=== PATIENT | female | born 1955 | race Caucasian/White ===

== ENCOUNTER 2018-01-30 10:06 | Day surgery (SDC) | payer MEDICARE ==
[~2018-01-30 10:06] MED LIST: ALBUTEROL NEB (CONC) 2.5 MG/0.5 ML INHALATION ONE; ATROPINE SULFATE 0.4 MG/ML 1 ML VIAL IM ONE; DEXAMETHASONE SOD PHOSPHATE 10 MG/ML 1 ML VIAL IV ONE; HYDROmorphone 0.5 MG/0.5 ML SYRINGE IVP PRN; LACTATED RINGERS 1,000 ML IV ONE; LACTATED RINGERS 1,000 ML IV SCH; LIDOCAINE 2% (PF) 20 MG/ML 10 ML AMP INHALATION NR; LIDOCAINE VISCOUS 2% 15 ML CUP MUCOUS MEM ONE; ONDANSETRON 4 MG/2 ML VIAL IVP ONE; SCOPOLAMINE 1.5MG/72HR PATCH TRANSDERM ONE
[2018-01-30 10:36] VITALS: RESP 16; TEMP 97.7
[2018-01-30] MEDS ORDERED: MIDAZOLAM 2 MG/2 ML VIAL ONE (11:34)
[2018-01-30] MEDS ORDERED: PROPOFOL 10 MG/ML 20 ML VIAL IV ONE (11:34)
[2018-01-30] MEDS ORDERED: LIDOCAINE 1% INJ 10MG/ML (20 ML MDV) ONE (11:34)
[2018-01-30] MEDS ORDERED: fentaNYL (PF) 50 MCG/ML 2 ML AMP ONE (11:34)
--- NOTE | 2018-01-30 12:52 | FL ---
EXAMINATION TYPE: FL bronchoscopy DATE OF EXAM: 01/30/2018 COMPARISON: NONE HISTORY: Fluoroscopy TECHNIQUE: Fluoroscopy. FINDINGS: Fluoroscopic guidance was provided during procedure of 1 minute and 33 seconds. IMPRESSION: As Above.
--- NOTE | 2018-01-30 13:12 | XR ---
EXAMINATION TYPE: XR chest 1V portable DATE OF EXAM: 01/30/2018 COMPARISON: NONE HISTORY: Status post lung biopsy. Known right lung mass. TECHNIQUE: Single frontal view of the chest is obtained. FINDINGS: There is a right lower lung opacity likely representing both the known right sided pulmona ry neoplasm and postbiopsy hemorrhage. No postprocedural pneumothorax is seen. Cardia mediastinal maria guadalupe houette is within normal limits. Mild multilevel degenerative changes of the thoracic spine are noted . Left lung remains clear. IMPRESSION: Right lower lung opacity likely representing the patient's known pulmonary neoplasm and postbiopsy hemorrhage. No postprocedural pneumothorax.
[2018-01-30 13:28] VITALS: BP 104/73; PULSE 60
[2018-01-30 18:21] LABS: Appearance,BF Blood Tinged; Mononuclear WBC,Body Fluid 87 %; Nucleated Cells, Body Fluid 200 /uL; Polynuclear WBC,Body Fluid 13 %; RBC, Body Fluid 11500 /uL; Total Cells Counted,Body Fluid 100
[2018-01-30] MEDS ORDERED: LIDOCAINE HCL/PF 20 MG/ML ML INHALATION ONE (19:45)
--- NOTE | 2018-01-30 22:15 | PCN ---
PROCEDURE NOTE PROCEDURE: Bronchoscopy, airway examination, therapeutic lavage, bronchoalveolar lavage, brushing of right lower lobe and transbronchial biopsy right lower lobe. PREOPERATIVE DIAGNOSIS: Rule out bronchogenic carcinoma. POSTOPERATIVE DIAGNOSIS: Rule out bronchogenic carcinoma. DESCRIPTION: There was informed consent. There was universal timeout. The procedure took place in room #1. The operators were Dr. Collins and Dr. Núñez. CHESTNUT TANNER provided unconscious sedation and general anesthesia. After the patient was adequately sedated and being fully monitored, the bronchoscope was inserted through the right nostril. It passed through the right nasopharynx into the oropharynx. The hypopharynx was identified and topicalized. The hypopharyngeal structures including the anterior commissure, true cords, false cords, arytenoids, piriform sinuses, right and left vallecula and epiglottis all appeared normal. After topicalization, bronchoscope was pushed through the glottic opening into the trachea. Trachea appeared normal. Trachea ana was sharp. We did a thorough inspection of the right upper lobe and its 3 segments, right middle lobe and its 2 segments, right lower lobe and its 5 segments, left upper lobe proper and its 2 segments, the lingula and its 2 segments, the left lower lobe and its 4 segments and there was no endobronchial disease. I expected to see some endobronchial disease based on the CT scan. Nonetheless, the bronchoscope was positioned in the right lower lobe. First, under fluoroscopic guidance, we did brushes to the right lower lobe. Next, we did multiple transbronchial biopsies under fluoroscopic guidance of the right lower lobe. Finally, we did washes in the right lower lobe. There was minimal bleeding. The patient tolerated the procedure well. There was no complications. There was no obvious pneumothorax on fluoro. A chest x-ray will be ordered. The bronchoscope was withdrawn. The patient will be recovered. MMODL / IJN: [id number] /
== END 2018-01-30 13:58 | disposition home or self-care (01) ==
LOC: ORWHC2ENDO 10:06
PROVIDERS: ATTEND Internal Medicine Critical Care Medicine
DX: J40 Bronchitis, not specified as acute or chronic (principal); I25.10 Atherosclerotic heart disease of native coronary artery without angina pectoris; I25.2 Old myocardial infarction; I10 Essential (primary) hypertension; E55.9 Vitamin D deficiency, unspecified; J18.9 Pneumonia, unspecified organism; Z87.891 Personal history of nicotine dependence; Z88.6 Allergy status to analgesic agent; Z88.8 Allergy status to other drugs, medicaments and biological substances; Z88.5 Allergy status to narcotic agent; Z79.891 Long term (current) use of opiate analgesic; Z79.899 Other long term (current) drug therapy
CPT/HCPCS: 94640; 87798 ×3; 87496; 87498; 87529 ×2; 88104; 88108; 88305; 89050; 87252; 87502; 87634; 87070; 87205; 87116; 87102; 87206; 71045; 31628; 31623; J2250; J0461; J2001 ×2; J3010; J2704; 31622; 31624; 31625

== ENCOUNTER → 2018-02-09 | Outpatient (CLI) | payer MEDICARE ==
--- NOTE | 2018-02-10 09:37 | PE ---
EXAMINATION TYPE: PET CT fusion skull to thigh DATE OF EXAM: 02/09/2018 COMPARISON: There are no prior CTs at this location. Chest x-ray 01/30/2018. Prior PET/CT: None HISTORY: Lung cancer TECHNIQUE: Following the intravenous administration of 12.03 mCi of F-18 FDG, whole body images are performed from the skull base to the midthigh. Images are reviewed on the computer in the coronal, a xial, and sagittal planes. Reconstructed rotating images are created on independent workstation and reviewed on the computer. A localization and attenuation correction CT is performed in conjunction with the PET scan. DLP: 451.84 mGycm SCAN: Initial Blood glucose: 103 mg/dL Average Mediastinum SUV: 1.84 Average Liver SUV: 3.01 FINDINGS: NECK: No abnormal uptake THORAX: The lung mass in the right middle lobe in the infrahilar region has marked increased SUV valu e of 16 compatible with neoplasm. Some post obstructive atelectasis is likely present extending into the more peripheral right middle lobe without marked uptake. There is a prominent lymph node in the pretracheal space above the level of the ana has mild uptak e. Maximum SUV value appears to be 2.8. Early metastasis should be considered. There is an enlarged l ymph node in the subcarinal region with increased uptake measuring 3.5 SUV. This is suspicious for me tastatic disease. ABDOMEN: No abnormal uptake. Adrenal glands are without abnormal uptake. Liver appears unremarkable. There is some patchy distribution of the radiotracer through the liver. Subtle metastasis would be ob scured. PELVIS: No abnormal uptake OSSEOUS STRUCTURES: No abnormal uptake LOCALIZATION CT: The enlarged pretracheal lymph node measuring 1.3 cm a subcarinal lymph node measuri ng 1.9 cm corresponding to the area of uptake on the PET scan. The right infrahilar lung mass is evid ent although less distinct than on the PET/CT. Note is made of coronary artery calcification. The asc ending thoracic aorta at the level of the main pulmonary artery is 3.3 cm. The main pulmonary artery the bifurcation is 2.3 cm. There may be a calcification in the left adrenal gland. This may be relate d to nearby adjacent splenic artery calcification. Right adrenal gland appears unremarkable. Noncontr ast imaging liver appears unremarkable. There is fusiform prominence of the abdominal aorta with an A P dimension of 3.4 cm. The proximal iliac vessels are dilated measuring 1.8 cm on the left common jesus ac 2.3 cm on the right common iliac. COMPARISON: Chest x-ray findings correspond to PET/CT findings. IMPRESSION: 1. Marked increased uptake within the right infrahilar mass in the right middle lobe compatible with neoplasm. 2. Metastatic disease to the enlarged lymph nodes in the pretracheal and subcarinal regions suspected based on elevated SUV values within these lymph nodes. 3. More distant metastasis are not identified.
== END ==
LOC: RADPETMAIN 09:37
PROVIDERS: ATTEND Internal Medicine Critical Care Medicine
DX: R91.8 Other nonspecific abnormal finding of lung field (principal)
CPT/HCPCS: 78815; A9552

== ENCOUNTER 2018-02-19 09:57 | Day surgery (SDC) | payer MEDICARE ==
[2018-02-14 13:21] VITALS: BMI 30.2
[~2018-02-19 09:57] MED LIST changes: -DEXAMETHASONE SOD PHOSPHATE 10 MG/ML 1 ML VIAL IV ONE; -HYDROmorphone 0.5 MG/0.5 ML SYRINGE IVP PRN; -LACTATED RINGERS 1,000 ML IV ONE; -LIDOCAINE 2% (PF) 20 MG/ML 10 ML AMP INHALATION NR; +LIDOCAINE HCL/PF 20 MG/ML ML INHALATION ONE; +MORPHINE SULFATE 2 MG/ML SYRINGE IV PRN; -ONDANSETRON 4 MG/2 ML VIAL IVP ONE; -SCOPOLAMINE 1.5MG/72HR PATCH TRANSDERM ONE; +SODIUM CHLORIDE 0.9% 1,000 ML IV SCH
[2018-02-19] MEDS ORDERED: LACTATED RINGERS 1,000 ML IV ONE (10:14)
[2018-02-19] MEDS ORDERED: LIDOCAINE 1% 20 ML VIAL (10MG/ML) FOR IV START INTRADERMA ONE (10:14)
[2018-02-19] MEDS ORDERED: MIDAZOLAM 2 MG/2 ML VIAL ONE (11:34)
[2018-02-19] MEDS ORDERED: ROCURONIUM BROMIDE 10 MG/ML 10 ML VIAL IV ONE (11:34)
[2018-02-19] MEDS ORDERED: LIDOCAINE 1% INJ 10MG/ML (20 ML MDV) ONE (11:34)
[2018-02-19] MEDS ORDERED: NEOSTIGMINE 1 MG/ML 10 ML VIAL ONE (11:34)
[2018-02-19] MEDS ORDERED: GLYCOPYRROLATE 0.2 MG/ML 2 ML VIAL ONE (11:34)
[2018-02-19] MEDS ORDERED: fentaNYL (PF) 50 MCG/ML 2 ML AMP ONE (11:34)
[2018-02-19] MEDS ORDERED: SUCCINYLCHOLINE CHLORIDE 100 MG/5 ML SYR IV ONE (11:34)
[2018-02-19] MEDS ORDERED: PROPOFOL 10 MG/ML 20 ML VIAL IV ONE (11:34)
[2018-02-19 12:53] VITALS: TEMP 97
--- NOTE | 2018-02-19 13:22 | XR ---
EXAMINATION TYPE: XR chest 1V DATE OF EXAM: 02/19/2018 COMPARISON: Prior chest x-ray 01/30/2018 HISTORY: Status post bronchoscopy TECHNIQUE: Single frontal view of the chest is obtained. FINDINGS: Patient is rotated. Arm overlies the left upper chest. No evident pneumothorax or pleural effusion. Abnormal density in the right middle lobe persists. IMPRESSION: No evident complication status post bronchoscopy.
[2018-02-19 13:44] VITALS: RESP 20
[2018-02-19 14:14] VITALS: BP 109/72; PULSE 64
--- NOTE | 2018-02-19 15:18 | CT ---
EXAMINATION TYPE: CT Chest francine Castro Protocol DATE OF EXAM: 02/19/2018 COMPARISON: 02/09/[address] HISTORY: Bronchial navigation. CT DLP: 923 mGycm Automated exposure control for dose reduction was used. FINDINGS: The triangular density extending into the right middle lobe remains present. This extends from the ma in right lower lobe bronchus. This is persistent from the PET/CT localization. Mild coronary artery calcification is present. Vascular calcifications at the aorta. There is enlarge d pretracheal lymph node measuring 1.2 cm. Subcarinal lymph node is enlarged estimated at 1.5 cm. A 1 .0 cm right peribronchial lymph node may be present. Tiny hypodensities in the superior right lobe liver measuring 0.4 cm could be a small cyst. Other rebekah ologies are not excluded, cyst too small to classify as a simple cyst. There is some fusiform promine nce of the distal visualized portion of the abdominal aorta measuring 3.1 cm. IMPRESSION: 1. TRIANGULAR OPACITY OF THE RIGHT MIDDLE LOBE EXTENDING FROM THE RIGHT MIDDLE LOBE BRONCHUS. 2. ENLARGED MEDIASTINAL LYMPH NODES. 3. FUSIFORM PROMINENCE OF THE PROXIMAL ABDOMINAL AORTA.
--- NOTE | 2018-02-19 18:54 | PCN ---
PROCEDURE NOTE PROCEDURE: Navigational bronchoscopy. OPERATORS: 1. Dr. Collins. 2. Dr. Núñez. There was informed consent and universal timeout. The patient's procedure took place in the operating room. General anesthesia was supplied by Dr. Wiggins and the nurse petroleum terminal plant operator. After the patient was adequately sedated and anesthetized, the bronchoscope was inserted through the bronchoscope adapter connected to the endotracheal tube. The patient had a preoperative CT scan to localize the lesion in the right middle lobe. The mapping was done prior. Next, the area was sampled a number of different ways. Initially we did some needle aspiration biopsies. Subsequent to that, we did some core biopsies, some endobronchial biopsies, some brushes and washes in the right middle lobe. We had Pathology stand by in the room during the procedure. They were convinced that we did make a diagnosis of [id number] lung cancer. We supplied them with a number of different specimens for them to take back to the laboratory to do analysis on. The patient tolerated the procedure well. After the biopsies were done and the sampling was done, we ensured that there was adequate hemostasis and there was. Next, the bronchoscope was withdrawn. The patient will be recovered. There was no immediate complication. Additional recommendations and suggestions are forthcoming. MMODL / IJN: [id number] /
== END 2018-02-19 14:22 | disposition home or self-care (01) ==
LOC: ORWHC2ENDO 09:57
PROVIDERS: ATTEND Internal Medicine Critical Care Medicine
DX: C34.2 Malignant neoplasm of middle lobe, bronchus or lung (principal); I10 Essential (primary) hypertension; I25.2 Old myocardial infarction; Z87.891 Personal history of nicotine dependence; I25.10 Atherosclerotic heart disease of native coronary artery without angina pectoris; E78.5 Hyperlipidemia, unspecified; Z88.6 Allergy status to analgesic agent; Z79.1 Long term (current) use of non-steroidal anti-inflammatories (NSAID); Z79.82 Long term (current) use of aspirin; Z79.891 Long term (current) use of opiate analgesic; Z79.899 Other long term (current) drug therapy; Z88.5 Allergy status to narcotic agent; Z88.8 Allergy status to other drugs, medicaments and biological substances; G89.29 Other chronic pain; M54.5 Low back pain
CPT/HCPCS: 88104; 88108; 88305; 88173; 88342; 71045; 71250; 31625; 31623; 31627; J2250; J2710; J2001; J3010; J0330; J2704; 31624

== ENCOUNTER → 2018-03-11 | Outpatient (CLI) | payer MEDICARE ==
[2018-03-11 08:42] LABS: Blood Urea Nitrogen 19 mg/dL (7-17)
--- NOTE | 2018-03-11 10:41 | MR ---
EXAMINATION TYPE: MR brain wo/w con DATE OF EXAM: 03/11/2018 COMPARISON: NONE HISTORY: Newly diagnosed lung cancer, initial staging study. TECHNIQUE: Multiplanar, multisequence images of the brain and brainstem is performed without and with IV contras t, utilizing 7.5 mL intravenous Gadavist . FINDINGS: Diffusion weighted images demonstrate no evidence of a recent infarct or other diffusion ab normality. There is no extra-axial fluid collection or significant white matter signal abnormality. The ventricular system and cisternal spaces are normal in size and appearance. The brain volume is age appropriate. Midline structures demonstrate normal morphology. The craniocervical junction appears within normal limits. Dominant right vertebral artery is incidentally noted. Post contrast images demonstrate no a bnormal enhancement. The dural venous sinuses appear patent. The visualized sinuses are clear and the globes are intact. IMPRESSION: No enhancing intraparenchymal foci identified to suggest metastatic disease to the brain currently.
== END | disposition home or self-care (01) ==
LOC: RADMRIMAIN 07:07
PROVIDERS: ATTEND Radiology Radiation Oncology
DX: C34.31 Malignant neoplasm of lower lobe, right bronchus or lung (principal)
CPT/HCPCS: 82565; 84520; 70553; 36415; A9585

== ENCOUNTER 2018-07-10 11:19 | Emergency (ER) | payer MEDICARE ==
[2018-07-10] MEDS ORDERED: RX INFO: IV CONTRAST WAS GIVEN 1 EACH MISC MISCELLANE PRN (12:06)
--- NOTE | 2018-07-10 12:12 | ED ---
General Adult HPI - General Chief complaint: Extremity Injury, Lower Stated complaint: Poss blood clot Time Seen by Provider: 07/10/18 11:53 Source: patient Mode of arrival: wheelchair Limitations: no limitations - History of Present Illness Initial comments: Dictation was produced using [employer] dictation software. please excuse any gra mmatical, word or spelling errors. Chief Complaint: 63-year-old female sent in by nurse practitioner from oncologist office for right lower extremity symptoms. History of Present Illness: 63-year-old female she was told by the nurse practitioner to come to the emergency department for further evaluation. 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 She did think much of it and went on about her day. They she's been having worsening right lower extremity pain with exertion. Patient then went to go see her nurse practitioner at the oncologist office. At that time she felt like her leg was cool and discolored. She is evaluated by nurse practitioner who reports that she can barely feel a pulse pressure she was sent here to the emergency department for evaluation of acute arterial occlusion of the right lower extremity. Patient states that her symptoms are much improved. She reports that the discoloration right lower extremity is none. Denies chest pain or shortness of breath. The ROS documented in this emergency department record has been reviewed and confirmed by me. Those systems with pertinent positive or negative responses have been documented in the HPI. All other systems are other negative and/or noncontributory. PHYSICAL EXAM: General Impression: Alert and oriented x3, not in acute distress HEENT: Normocephalic atraumatic, extra-ocular movements intact, pupils equal and reactive to light bilaterally, mucous membranes moist. Cardiovascular: Heart regular rate and rhythm, S1&S2 audible, no murmurs, rubs or gallops Chest: Lungs clear to auscultation bilaterally, no rhonchi, no wheeze, no rales Abdomen: Bowel sounds present, abdomen soft, non-tender, non-distended, no organomegaly Musculoskeletal: Pulse of the PT and DP of the right lower extremity no peripheral edema Right lower extremity is equal in temperature compared to the left. Coloration is symmetrical diminished pulse in the right DP and PT pulse Motor: no focal deficits noted Neurological: CN II-XII grossly intact, no focal motor or sensory deficits noted Skin: Intact with no visualized rashes Psych: Normal affect and mood ED course: 63-year-old female presents with clinical presentation concerning for acute arterial occlusion. Physical examination at this time shows decreased pulse however other findings to suggest ischemic limb. Signs upon arrival are within acceptable limits. Laboratory evaluation obtained. CBC coag panel unremarkable. No LOC acidosis. Chest x-ray is nonacute. Lower extremity CT angios were performed. There is peripheral vascular disease on bilateral lower extremities. Given that her right leg was the leg of interest there is difficult to exclude acute thrombosis of the popliteal artery. Patient does have decreased pulse however upon repeat evaluation she does have normal temperatures, sensation of light touch and intact movement. At this point clinically her foot does not appear acutely ischemic. Discussed patient case with Dr. Sanchez who recommended discussing patient case with Dr. Mistry. Discussed patient case with Dr. Mistry. Patient insisted that she not go down by ambulance given increase hospital bills. She does however agree to go via private vehicle. Patient understands the risk of private vehicle transfer and they accept the risks. Patient clinically stable at this time. Dr. Mistry is expecting the patient. Discussed patient case with Dr. Huber at [facility] who was willing to accept the transfer. EKG interpretation: Ventricular rate 77, normal sinus rhythm,. 144, care is 100, QTC 466. No ND prolongation, no QTC prolongation, no ST or T-wave changes noted. Overall, this EKG is unremarkable - Related Data Home Medications Medication Instructions Recorded Confirmed Cyclobenzaprine [Flexeril] 10 mg PO TID PRN 01/28/18 07/10/18 HYDROcodone/APAP 7.5-325MG [Eight[place] 1 tab PO Q8H PRN 01/28/18 07/10/18 7.5-325] Ibuprofen [Motrin] 800 mg PO TID PRN 01/28/18 07/10/18 Nitroglycerin Sl Tabs [Nitrostat] 0.4 mg PO Q5M PRN 01/28/18 07/10/18 Pramipexole [Mirapex] 0.125 mg PO HS 01/28/18 07/10/18 Rosuvastatin [Crestor] 20 mg PO HS 01/28/18 07/10/18 Spironolactone [Aldactone] 25 mg PO QAM 01/28/18 07/10/18 Aspirin [Adult Low Dose Aspirin EC] 81 mg PO DAILY 05/22/18 07/10/18 Ondansetron HCl [Zofran] 4 mg PO Q6H PRN 05/22/18 07/10/18 Albuterol Sulfate [Albuterol 1 puff PO RT-Q4H PRN 07/10/18 07/10/18 Sulfate Hfa] Ibuprofen/Diphenhydramine Cit 2 tab PO HS PRN 07/10/18 07/10/18 [Motrin Pm Caplet] Loratadine [Claritin] 10 mg PO DAILY 07/10/18 07/10/18 Nystatin 100,000 Unit/ml Susp 5 ml PO QID PRN 07/10/18 07/10/18 [Mycostatin Oral Susp] Pantoprazole Sodium [Protonix] 40 mg PO BID 07/10/18 07/10/18 Allergies Allergy/AdvReac Type Severity Reaction Status Date / Time ketorolac [From Toradol] AdvReac Rash/Hives Verified 07/10/18 12:09 orphenadrine [From Norgesic] AdvReac Rash/Hives Verified 07/10/18 12:09 tolmetin [From Tolectin] AdvReac Rash/Hives Verified 07/10/18 12:09 Review of Systems ROS Statement: Those systems with pertinent positive or pertinent negative responses have been documented in the HPI. ROS Other: All systems not noted in ROS Statement are negative. Past Medical History Past Medical History: Cancer, Hyperlipidemia, Hypertension, Myocardial Infarction (AR), Osteoarthritis (OA) Additional Past Medical History / Comment(s): LOWER BACK PAIN. MASS RIGHT LUNG (SOB). RIGHT MIDDLE LOBE NSC LUNG CANCER. Last Myocardial Infarction Date:: 1995 History of Any Multi-Drug Resistant Organisms: None Reported Past Surgical History: Back Surgery, Breast Surgery, Heart Catheterization, Hysterectomy, Orthopedic Surgery Additional Past Surgical History / Comment(s): left kidney mass removed, RIGHT ROTATOR CUFF. THYROID. LEFT BREAST BX (NEG). Past Anesthesia/Blood Transfusion Reactions: No Reported Reaction Past Psychological History: No Psychological Hx Reported Smoking Status: Former smoker Past Alcohol Use History: None Reported Past Drug Use History: None Reported - Past Family History Mother Family Medical History: Cancer Additional Family Medical History / Comment(s): lung cancer. mesothelioma General Exam Limitations: no limitations Course Vital Signs 07/10/18 07/10/18 07/10/18 11:43 12:39 14:00 Temperature 97.1 F L Pulse Rate 88 75 77 Respiratory 16 18 18 Rate Blood Pressure 116/83 112/84 129/84 O2 Sat by Pulse 99 100 97 Oximetry 07/10/18 15:00 Temperature 98.0 F Pulse Rate 86 Respiratory 18 Rate Blood Pressure 129/85 O2 Sat by Pulse 99 Oximetry Medical Decision Making - Lab Data Result diagrams: 07/10/18 12:35 07/10/18 12:35 Lab Results 07/10/18 07/10/18 07/10/18 Range/Units 12:35 12:35 12:35 WBC 9.4 (3.8-10.6) k/uL RBC 4.24 (3.80-5.40) m/uL Hgb 11.9 (11.4-16.0) gm/dL Hct 36.2 (34.0-46.0) % MCV 85.3 (80.0-100.0) fL MCH 28.1 (25.0-35.0) pg MCHC 32.9 (31.0-37.0) g/dL RDW 15.5 (11.5-15.5) % Plt Count 251 (150-450) k/uL Neutrophils % 77 % Lymphocytes % 20 % Monocytes % 1 % Eosinophils % 1 % Basophils % 0 % Neutrophils # 7.2 (1.3-7.7) k/uL Lymphocytes # 1.9 (1.0-4.8) k/uL Monocytes # 0.1 (0-1.0) k/uL Eosinophils # 0.1 (0-0.7) k/uL Basophils # 0.0 (0-0.2) k/uL Sodium 134 L (137-145) mmol/L Potassium 4.8 (3.5-5.1) mmol/L Chloride 100 (98-107) mmol/L Carbon Dioxide 24 (22-30) mmol/L Anion Gap 10 mmol/L BUN 14 (7-17) mg/dL Creatinine 0.55 (0.52-1.04) mg/dL Est GFR (CKD-EPI)AfAm >90 (>60 ml/min/1.73 sqM) Est GFR (CKD-EPI)NonAf >90 (>60 ml/min/1.73 sqM) Glucose 99 (74-99) mg/dL Plasma Lactic Acid Mumtaz 1.0 (0.7-2.0) mmol/L Calcium 9.3 (8.4-10.2) mg/dL Magnesium 1.6 (1.6-2.3) mg/dL Disposition Clinical Impression: Acute occlusion of artery Disposition: OTHER INSTITUTION NOT DEFINED Condition: Critical Referrals: Pk Castano DO [Primary Care Provider] - 1-2 days - Out of Hospital Transfer - Req. Specs Out of Hospital Transfer - Requested Specifics: Other Emergency Center ([facility])
[2018-07-10 12:40] VITALS: RESP 18
[2018-07-10 13:06] LABS: Anion Gap 10 mmol/L; Blood Urea Nitrogen 14 mg/dL (7-17); Calcium 9.3 mg/dL (8.4-10.2); Carbon Dioxide 24 mmol/L (22-30); Chloride 100 mmol/L (98-107); Glucose 99 mg/dL (74-99); Magnesium 1.6 mg/dL (1.6-2.3); Potassium 4.8 mmol/L (3.5-5.1); Sodium 134 mmol/L (137-145)
[2018-07-10 13:13] LABS: Basophils % (A) 0 %; Eosinophils # (A) 0.1 k/uL (0-0.7); Eosinophils % (A) 1 %; HCT 36.2 % (34.0-46.0); HGB 11.9 gm/dL (11.4-16.0); Lymphocytes # (A) 1.9 k/uL (1.0-4.8); Lymphocytes % (A) 20 %; MCH 28.1 pg (25.0-35.0); MCHC 32.9 g/dL (31.0-37.0); MCV 85.3 fL (80.0-100.0); Mean Platelet Volume 6.8; Monocytes # (A) 0.1 k/uL (0-1.0); Monocytes % (A) 1 %; Neutrophils # (A) 7.2 k/uL (1.3-7.7); Neutrophils % (A) 77 %; Platelet Count 251 k/uL (150-450); RBC 4.24 m/uL (3.80-5.40); RDW 15.5 % (11.5-15.5); WBC 9.4 k/uL (3.8-10.6)
--- NOTE | 2018-07-10 13:54 | XR ---
EXAMINATION TYPE: XR chest 1V portable DATE OF EXAM: 07/10/2018 COMPARISON: 02/19/2018 INDICATION: Right lower extremity circulation probable TECHNIQUE: Single frontal view of the chest is obtained. FINDINGS: The heart size is normal. The pulmonary vasculature is normal. The lungs are clear. Note is made of a stent-like device in the right hilar region IMPRESSION: 1. No acute pulmonary process.
--- NOTE | 2018-07-10 14:19 | CT ---
CT angiogram right lower extremity HISTORY: Pain Helical acquisition from the distal aorta through the lower extremities following 100 cc [id number] I V. Three-dimensional reconstructions performed on an alternate workstation. No comparisons Infrarenal abdominal aorta is ectatic measuring 2.5 cm. There is luminal plaque. Inferior mesenteric artery, common iliac arteries, internal and external iliac arteries are patent. Common iliac arteries aneurysmal at 2.6 cm on the right hand 2.4 cm on the left. The common femoral arteries, deep and superficial femoral arteries are patent. On the right the distal superficial femoral artery is occluded. 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 Minimal reconstituted peroneal opacification distally on the right. Poor opacification of the left popliteal artery also show to be present showing more distally, no peripheral flow ident ified on the left, the gradual loss of enhancement of the popliteal artery in the left is noted as co mpared to the right. IMPRESSION: Difficult to exclude acute thrombosis of popliteal artery aneurysm on the right, poor dis jaskaran flow on the left may be due to technique, aneurysm, timing of the outflow or thrombosis, embolus not excluded.
[2018-07-10 15:27] VITALS: BP 129/85; PULSE 86; TEMP 98
== END 2018-07-10 16:08 | disposition other institution (70) ==
LOC: EC 11:19
DX: I70.201 Unspecified atherosclerosis of native arteries of extremities, right leg (principal); E78.5 Hyperlipidemia, unspecified; I10 Essential (primary) hypertension; I25.2 Old myocardial infarction; Z85.118 Personal history of other malignant neoplasm of bronchus and lung; Z95.818 Presence of other cardiac implants and grafts; Z87.891 Personal history of nicotine dependence; Z79.82 Long term (current) use of aspirin; Z79.899 Other long term (current) drug therapy; Z88.6 Allergy status to analgesic agent; Z88.8 Allergy status to other drugs, medicaments and biological substances
CPT/HCPCS: 36415; 93005; 80048; 83605; 83735; 85025; 71045; 73706; 99285; Q9967

== ENCOUNTER → 2018-08-30 | Outpatient (CLI) | payer MEDICARE ==
--- NOTE | 2018-09-02 12:57 | CT ---
CT angiogram left lower extremity HISTORY: Popliteal aneurysm Helical acquisition obtained peripheral abdominal aorta through the lower extremities following 100 c c [id number] IV. Three-dimensional reconstructions performed in an alternate workstation. Infrarenal abdominal aorta measures approximately 3.6 cm in greatest dimension. There is atheromatous calcification, luminal plaque. Proximal common iliac artery on the right measures 2.6 cm and on the left 18 mm. The inferior mesenteric artery, left and right common iliac, left and right internal and external iliac, left and right common, deep and superficial femoral arteries are patent. The poplitea l arteries are patent. Trifurcation vasculature is intact. The right popliteal artery shows diameter of 2.1 cm with soft tissue extending beyond the patent enha nced portion of the vessel. Similarly, on the left popliteal artery measures approximately 18 mm, por tion of the artery is not thought to enhance as on the contralateral side. 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 Atherosclerotic changes are present with in the aorta and peripheral vasculature.
== END | disposition home or self-care (01) ==
LOC: RADCTMAIN 12:40
PROVIDERS: ATTEND Surgery
DX: I72.4 Aneurysm of artery of lower extremity (principal)
CPT/HCPCS: 82565; 84520; 36415; 73706; Q9967

== ENCOUNTER 2018-11-04 20:18 | Emergency (ER) | payer MEDICARE ==
[2018-11-04 20:48] VITALS: TEMP 97.9
--- NOTE | 2018-11-04 21:40 | ED ---
URI HPI - General Chief Complaint: Upper Respiratory Infection Stated Complaint: Pneumonia-Ca pt Time Seen by Provider: 11/04/18 21:28 Source: patient, RN notes reviewed Mode of arrival: ambulatory Limitations: no limitations - History of Present Illness Initial Comments: 63-year-old female presents emergency Department chief complaint cough congestion. Patient states she has been sick for last week to see her oncologist in which she was prescribed a cough medicine. Patient states she's has ongoing nose and a nonproductive cough denies any chest pain or increased shortness of breath. Patient states she started coughing. Patient states that she does have lung cancer in which she had a last round of chemo in August. Patient did have an attempted thoracotomy for removal of the cancer though this is unsuccessful. Patient states that she is scheduled for another round of chemo and radiation. Denies any fevers, chills, night sweats denies any chest pain, nausea or vomiting. - Related Data Home Medications Medication Instructions Recorded Confirmed Ibuprofen [Motrin] 800 mg PO TID PRN 01/28/18 11/04/18 Nitroglycerin Sl Tabs [Nitrostat] 0.4 mg PO Q5M PRN 01/28/18 11/04/18 Pramipexole [Mirapex] 0.125 mg PO HS 01/28/18 11/04/18 Rosuvastatin [Crestor] 20 mg PO HS 01/28/18 11/04/18 Spironolactone [Aldactone] 25 mg PO QAM 01/28/18 11/04/18 Aspirin [Adult Low Dose Aspirin EC] 81 mg PO DAILY 05/22/18 11/04/18 Pantoprazole Sodium [Protonix] 40 mg PO DAILY 07/10/18 11/04/18 Clopidogrel Bisulfate [Plavix] 75 mg PO DAILY 07/24/18 11/04/18 Acetaminophen [Tylenol] 650 mg PO Q6H PRN 11/04/18 11/04/18 Albuterol Nebulized [Ventolin 2.5 mg INHALATION RT-BID 11/04/18 11/04/18 Nebulized] Gabapentin [Neurontin] 100 mg PO TID 11/04/18 11/04/18 Sennosides-Docusate Sodium 1 tab PO BID 11/04/18 11/04/18 [Senokot-S] oxyCODONE HCL [Roxicodone] 5 - 10 mg PO Q4H PRN 11/04/18 11/04/18 tiZANidine HCL [Zanaflex] 4 mg PO Q8HR PRN 11/04/18 11/04/18 Allergies Allergy/AdvReac Type Severity Reaction Status Date / Time ketorolac [From Toradol] AdvReac Rash/Hives Verified 11/04/18 22:11 orphenadrine [From Norgesic] AdvReac Rash/Hives Verified 11/04/18 22:11 tolmetin [From Tolectin] AdvReac Rash/Hives Verified 11/04/18 22:11 Review of Systems ROS Statement: Those systems with pertinent positive or pertinent negative responses have been documented in the HPI. ROS Other: All systems not noted in ROS Statement are negative. Past Medical History Past Medical History: Cancer, Deep Vein Thrombosis (DVT), Hyperlipidemia, Hypertension, Myocardial Infarction (MS), Osteoarthritis (OA) Additional Past Medical History / Comment(s): LOWER BACK PAIN. MASS RIGHT LUNG (SOB). RIGHT MIDDLE LOBE NSC LUNG CANCER. BILATERAL LOWER LEGS DVT. Last Myocardial Infarction Date:: 1995 History of Any Multi-Drug Resistant Organisms: None Reported Past Surgical History: Back Surgery, Breast Surgery, Heart Catheterization, Hysterectomy, Orthopedic Surgery Additional Past Surgical History / Comment(s): RIGHT ROTATOR CUFF. THYROID. LEFT BREAST BX (NEG). RIGHT LOWER LEG STENT. thoracotomy Past Anesthesia/Blood Transfusion Reactions: No Reported Reaction Past Psychological History: No Psychological Hx Reported Smoking Status: Former smoker Past Alcohol Use History: None Reported Past Drug Use History: None Reported - Past Family History Mother Family Medical History: Cancer Additional Family Medical History / Comment(s): lung cancer. mesothelioma General Exam Limitations: no limitations General appearance: alert, in no apparent distress Head exam: Present: atraumatic, normocephalic, normal inspection Eye exam: Present: normal appearance, PERRL, EOMI. Absent: scleral icterus, conjunctival injection, periorbital swelling ENT exam: Present: normal exam, normal oropharynx, mucous membranes moist Neck exam: Present: normal inspection, full ROM. Absent: tenderness, meningismus, lymphadenopathy Respiratory exam: Present: rhonchi. Absent: normal lung sounds bilaterally, respiratory distress, wheezes, rales, stridor Cardiovascular Exam: Present: regular rate, normal rhythm, normal heart sounds. Absent: systolic murmur, diastolic murmur, rubs, gallop, clicks GI/Abdominal exam: Present: soft, normal bowel sounds. Absent: distended, tenderness, guarding, rebound, rigid Course Vital Signs 11/04/18 11/04/18 20:45 21:35 Temperature 97.9 F Pulse Rate 101 H Respiratory 18 98 H Rate Blood Pressure 115/78 O2 Sat by Pulse 99 Oximetry Medical Decision Making - Medical Decision Making 63-year-old female presented for cough congestion. Chest x-ray is obtained which shows mass on the right which is a known lung cancer. She is currently be ing treated with oncology. Patient we treated for acute bronchitis with antibiotics and steroids she has a follow-up appointment with her oncologist and return parameters were discussed. Disposition Clinical Impression: Acute bronchitis Disposition: HOME SELF-CARE Condition: Stable Instructions (If sedation given, give patient instructions): Acute Bronchitis (ED) Additional Instructions: Please return to the Emergency Department if symptoms worsen or any other concerns. Is patient prescribed a controlled substance at d/c from ED?: No Referrals: Pk Castano DO [Primary Care Provider] - 1-2 days Time of Disposition: 22:44
--- NOTE | 2018-11-04 22:10 | XR ---
EXAMINATION TYPE: XR chest 2V DATE OF EXAM: 11/04/2018 COMPARISON: 07/10/2018 HISTORY: Cough TECHNIQUE: Frontal and lateral views of the chest are obtained. FINDINGS: Heart is normal. There is some consolidation and atelectasis in the anterior right middle lobe. There is right posterior sixth rib fracture that could relate to thoracotomy. The left lung is clear. There is no heart failure. There is no pleural effusion. Bones are osteopenic. IMPRESSION: Right middle lobe consolidation and atelectasis increased compared to last exam and coul d relate to progression of tumor in this patient with a history of lung cancer.
[2018-11-04] MEDS ORDERED: predniSONE 50 MG TAB PO STA (22:41)
[2018-11-04] MEDS ORDERED: AZITHROMYCIN 250 MG TAB PO STA (22:41)
[2018-11-04 22:58] VITALS: BP 100/68; PULSE 91; RESP 22
== END 2018-11-04 22:57 | disposition home or self-care (01) ==
LOC: EC 20:18
DX: J20.9 Acute bronchitis, unspecified (principal); C34.91 Malignant neoplasm of unspecified part of right bronchus or lung; I10 Essential (primary) hypertension; E78.5 Hyperlipidemia, unspecified; I25.2 Old myocardial infarction; Z79.82 Long term (current) use of aspirin; Z79.899 Other long term (current) drug therapy; Z79.02 Long term (current) use of antithrombotics/antiplatelets; Z88.6 Allergy status to analgesic agent; Z88.8 Allergy status to other drugs, medicaments and biological substances; Z87.891 Personal history of nicotine dependence; Z95.5 Presence of coronary angioplasty implant and graft; Z86.718 Personal history of other venous thrombosis and embolism
CPT/HCPCS: 71046; 99283; J7512

== ENCOUNTER → 2018-11-13 | Outpatient (CLI) | payer MEDICARE ==
--- NOTE | 2018-11-13 16:15 | CT ---
EXAMINATION TYPE: CT chest abdomen wo/w con DATE OF EXAM: 11/13/2018 COMPARISON: CT chest August 07, 2018 HISTORY: f/u lung ca CT DLP: 1048.3 mGycm. Automated Exposure Control for Dose Reduction was Utilized. CONTRAST: CT scan of the thorax and abdomen are performed without and with IV Contrast, patient injected with 1 00 mL of Isovue 300. FINDINGS: CHEST: LUNGS: Metallic stent in the right middle lobe bronchus is redemonstrated and remains patent. There i s surrounding masslike consolidation again seen axial image 30 not significantly changed from prior. There is anterior inferior consolidation redemonstrated. There are new areas of nodular consolidation or new nodules just superior to this involving the anterior-inferior aspect right upper lobe. For re ference is 1.1 x 1.0 cm lesion image 24 and just inferior to this irregular masslike lesion 2.2 x 1.1 cm axial image 26. No pleural effusion is evident. New suspicious pleural lesion with destruction of portions of the right posterior lateral sixth rib axial image 24. MEDIASTINUM: There is suspected enlarging subcarinal lymph node measuring 2.6 x 1.1 cm axial image [address] Stable prominent but subcentimeter right pericarinal lymph node axial image 20. No cardiomegaly or pericardial effusion is seen. Mild to moderate calcified plaque of the aorta OTHER: Benign calcified lesion left breast axial image 26 redemonstrated. LIVER/GB: Stable subcentimeter low dense lesion left hepatic dome axial image 43. PANCREAS: No significant abnormality is seen. SPLEEN: No significant abnormality is seen. ADRENALS: No significant abnormality is seen. KIDNEYS: No significant abnormality is seen. BOWEL: No significant abnormality is seen. LYMPH NODES: No greater than 1cm abdominal lymph nodes are appreciated. OSSEOUS STRUCTURES: No significant abnormality is seen. OTHER: Focal AAA up to 3.4 cm axial image 70 is redemonstrated. IMPRESSION: Overall disease progression. New pleural-based Soft tissue mass with pathologic fractur e of the right posterior lateral sixth rib. Patent right middle bronchial stent with no suspicious no dules or nodular consolidation. Suspect enlarging subcarinal lymph node.
== END | disposition home or self-care (01) ==
LOC: RADCTMAIN 14:47
PROVIDERS: ATTEND Radiology Radiation Oncology
DX: M79.89 Other specified soft tissue disorders (principal); R91.8 Other nonspecific abnormal finding of lung field; Z92.21 Personal history of antineoplastic chemotherapy; Z87.891 Personal history of nicotine dependence
CPT/HCPCS: 71270; 74170; Q9967

== ENCOUNTER 2019-01-15 12:04 | Emergency (ER) | payer MEDICARE ==
[2019-01-15 12:09] VITALS: TEMP 98
[2019-01-15] MEDS ORDERED: SODIUM CHLORIDE 0.9% 500 ML 500 ML IV STA (12:20)
--- NOTE | 2019-01-15 12:23 | ED ---
General Adult HPI - General Chief complaint: GI Bleed Stated complaint: Coughing up blood Time Seen by Provider: 01/15/19 12:05 Source: patient, RN notes reviewed, old records reviewed Mode of arrival: ambulatory Limitations: no limitations - History of Present Illness Initial comments: This is a 63-year-old female with a past medical history significant for lung cancer. Patient states she had her last bout of chemotherapy about 2 and half weeks ago. Patient states today she started coughing and coughed up quite a bit of blood. Patient states it was about an hour and a half prior to arrival. Patient denies any difficulty breathing shortness of breath per patient denies any chest pain. Patient isn't palpitations. Patient states she is on Plavix but she hasn't taken for the last couple of days. Patient denies any abdominal pain patient states it definitely wasn't vomiting. Patient denies any lightheadedness or dizziness. Currently sitting in bed patient states she feels completely fine. Patient denies any dark black stools. Patient denies any back pain. - Related Data Home Medications Medication Instructions Recorded Confirmed Ibuprofen [Motrin] 800 mg PO TID PRN 01/28/18 01/15/19 Nitroglycerin Sl Tabs [Nitrostat] 0.4 mg PO Q5M PRN 01/28/18 01/15/19 Pramipexole [Mirapex] 0.125 mg PO HS 01/28/18 01/15/19 Rosuvastatin [Crestor] 20 mg PO HS 01/28/18 01/15/19 Spironolactone [Aldactone] 25 mg PO QAM 01/28/18 01/15/19 Aspirin [Adult Low Dose Aspirin EC] 81 mg PO DAILY 05/22/18 01/15/19 Pantoprazole Sodium [Protonix] 40 mg PO DAILY 07/10/18 01/15/19 Clopidogrel Bisulfate [Plavix] 75 mg PO DAILY 07/24/18 01/15/19 Acetaminophen [Tylenol] 650 mg PO Q6H PRN 11/04/18 01/15/19 Albuterol Nebulized [Ventolin 2.5 mg INHALATION RT-BID 11/04/18 01/15/19 Nebulized] Gabapentin [Neurontin] 100 mg PO TID 11/04/18 01/15/19 Sennosides-Docusate Sodium 1 tab PO BID 11/04/18 01/15/19 [Senokot-S] oxyCODONE HCL [Roxicodone] 5 - 10 mg PO Q4H PRN 11/04/18 01/15/19 tiZANidine HCL [Zanaflex] 4 mg PO Q8HR PRN 11/04/18 01/15/19 Escitalopram [Lexapro] 20 mg PO DAILY 11/26/18 01/15/19 Varenicline Tartrate [Chantix 1 mg PO BID 11/26/18 01/15/19 Continuing Pack] Prochlorperazine [Compazine] 5 mg PO Q8HR PRN 12/10/18 01/15/19 Lidocaine Viscous 2% [Xylocaine 15 ml PO Q4H PRN 12/24/18 01/15/19 Viscous] Sucralfate [Carafate] 1 gm PO ACHS PRN 12/31/18 01/15/19 Previous Rx's Medication Instructions Recorded Potassium Chloride ER [K-Dur 20] 20 meq PO DAILY #10 tab 01/15/19 Allergies Allergy/AdvReac Type Severity Reaction Status Date / Time ketorolac [From Toradol] Allergy Rash/Hives Verified 01/15/19 13:47 orphenadrine [From Norgesic] Allergy Rash/Hives Verified 01/15/19 13:47 tolmetin [From Tolectin] Allergy Rash/Hives Verified 01/15/19 13:47 Review of Systems ROS Statement: Those systems with pertinent positive or pertinent negative responses have been documented in the HPI. ROS Other: All systems not noted in ROS Statement are negative. Past Medical History Past Medical History: Cancer, Deep Vein Thrombosis (DVT), Hyperlipidemia, Hypertension, Myocardial Infarction (MS), Osteoarthritis (OA) Additional Past Medical History / Comment(s): LOWER BACK PAIN. MASS RIGHT LUNG (SOB). RIGHT MIDDLE LOBE NSC LUNG CANCER. BILATERAL LOWER LEGS DVT. BRONCHITIS Last Myocardial Infarction Date:: 1995 History of Any Multi-Drug Resistant Organisms: None Reported Past Surgical History: Back Surgery, Breast Surgery, Heart Catheterization, Hysterectomy, Orthopedic Surgery Additional Past Surgical History / Comment(s): RIGHT ROTATOR CUFF. THYROID. LEFT BREAST BX (NEG). RIGHT LOWER LEG STENT. THORACOTOMY AT [facility] 2018 Past Anesthesia/Blood Transfusion Reactions: No Reported Reaction Past Psychological History: No Psychological Hx Reported Smoking Status: Former smoker Past Alcohol Use History: None Reported Past Drug Use History: None Reported - Past Family History Mother Family Medical History: Cancer Additional Family Medical History / Comment(s): lung cancer. mesothelioma General Exam - General Exam Comments Initial Comments: GENERAL: Patient is well-developed and well-nourished. Patient is nontoxic and well- hydrated and is in no acute distress. ENT: Neck is soft and supple. No significant lymphadenopathy is noted. Oropharynx is clear. Moist mucous membranes. Neck has full range of motion without eliciting any pain. EYES: The sclera were anicteric and conjunctiva were pink and moist. Extraocular movements were intact and pupils were equal round and reactive to light. Eyelids were unremarkable. PULMONARY: Unlabored respirations. Good breath sounds bilaterally. No audible rales rhonchi or wheezing was noted. CARDIOVASCULAR: There is a regular rate and rhythm without any murmurs gallops or rubs. ABDOMEN: Soft and nontender with normal bowel sounds. SKIN: Skin is clear with no lesions or rashes and otherwise unremarkable. NEUROLOGIC: Patient is alert and oriented x3. Cranial nerves II through XII are grossly intact. Motor and sensory are also intact. Normal speech, volume and content. Symmetrical smile. MUSCULOSKELETAL: Normal extremities with adequate strength and full range of motion. No lower extremity swelling or edema. No calf tenderness. LYMPHATICS: No significant lymphadenopathy is noted PSYCHIATRIC: Normal psychiatric evaluation. Limitations: no limitations Course Vital Signs 01/15/19 01/15/19 01/15/19 12:06 12:43 14:30 Temperature 98.0 F Pulse Rate 105 H 90 85 Respiratory 19 18 18 Rate Blood Pressure 102/69 103/73 103/59 O2 Sat by Pulse 92 L 97 94 L Oximetry Medical Decision Making - Medical Decision Making Patient's CT of the chest showed no pulmonary embolism and however it did show a mass which was previously known. The patient had no episode of hemoptysis the emergency department. I tried to contact Dr. Goetz or Dr. Sequeira but the phones were down and was unable to contact him I will back in and again talked to the patient about staying and that I felt this so she sustained but she absolutely refused and stated if he started to occur again should come back to the hospital immediately. Patient understands the risks of going home and possibly bleeding out but she still wants to go home and return if she has problems. Patient will sign out AMA - Lab Data Result diagrams: 01/15/19 12:25 01/15/19 12:25 Lab Results 01/15/19 01/15/19 01/15/19 Range/Units 12:25 12:25 12:25 WBC 6.5 (3.8-10.6) k/uL RBC 3.79 L (3.80-5.40) m/uL Hgb 10.5 L (11.4-16.0) gm/dL Hct 31.7 L (34.0-46.0) % MCV 83.7 (80.0-100.0) fL MCH 27.8 (25.0-35.0) pg MCHC 33.2 (31.0-37.0) g/dL RDW 22.4 H (11.5-15.5) % Plt Count 372 (150-450) k/uL Neutrophils % 92 % Lymphocytes % 2 % Monocytes % 5 % Eosinophils % 0 % Basophils % 0 % Neutrophils # 6.0 (1.3-7.7) k/uL Lymphocytes # 0.1 L (1.0-4.8) k/uL Monocytes # 0.3 (0-1.0) k/uL Eosinophils # 0.0 (0-0.7) k/uL Basophils # 0.0 (0-0.2) k/uL Anisocytosis Moderate Microcytosis Slight PT 10.7 (9.0-12.0) sec INR 1.0 (<1.2) APTT 26.7 (22.0-30.0) sec D-Dimer 1.08 H (<0.60) mg/L FEU Sodium 127 L (137-145) mmol/L Potassium 2.9 L (3.5-5.1) mmol/L Chloride 82 L (98-107) mmol/L Carbon Dioxide 35 H (22-30) mmol/L Anion Gap 10 mmol/L BUN 14 (7-17) mg/dL Creatinine 0.97 (0.52-1.04) mg/dL Est GFR (CKD-EPI)AfAm 72 (>60 ml/min/1.73 sqM) Est GFR (CKD-EPI)NonAf 63 (>60 ml/min/1.73 sqM) Glucose 100 H (74-99) mg/dL Calcium 8.8 (8.4-10.2) mg/dL Magnesium 1.7 (1.6-2.3) mg/dL Total Bilirubin 1.6 H (0.2-1.3) mg/dL AST 27 (14-36) U/L ALT 18 (9-52) U/L Alkaline Phosphatase 104 (38-126) U/L Troponin I (0.000-0.034) ng/mL Total Protein 6.8 (6.3-8.2) g/dL Albumin 3.8 (3.5-5.0) g/dL Blood Type Blood Type Confirm Blood Type Recheck Bld Type Recheck Status Antibody Screen Spec Expiration Date 01/15/19 01/15/19 01/15/19 Range/Units 12:25 12:25 14:34 WBC (3.8-10.6) k/uL RBC (3.80-5.40) m/uL Hgb (11.4-16.0) gm/dL Hct (34.0-46.0) % MCV (80.0-100.0) fL MCH (25.0-35.0) pg MCHC (31.0-37.0) g/dL RDW (11.5-15.5) % Plt Count (150-450) k/uL Neutrophils % % Lymphocytes % % Monocytes % % Eosinophils % % Basophils % % Neutrophils # (1.3-7.7) k/uL Lymphocytes # (1.0-4.8) k/uL Monocytes # (0-1.0) k/uL Eosinophils # (0-0.7) k/uL Basophils # (0-0.2) k/uL Anisocytosis Microcytosis PT (9.0-12.0) sec INR (<1.2) APTT (22.0-30.0) sec D-Dimer (<0.60) mg/L FEU Sodium (137-145) mmol/L Potassium (3.5-5.1) mmol/L Chloride (98-107) mmol/L Carbon Dioxide (22-30) mmol/L Anion Gap mmol/L BUN (7-17) mg/dL Creatinine (0.52-1.04) mg/dL Est GFR (CKD-EPI)AfAm (>60 ml/min/1.73 sqM) Est GFR (CKD-EPI)NonAf (>60 ml/min/1.73 sqM) Glucose (74-99) mg/dL Calcium (8.4-10.2) mg/dL Magnesium (1.6-2.3) mg/dL Total Bilirubin (0.2-1.3) mg/dL AST (14-36) U/L ALT (9-52) U/L Alkaline Phosphatase (38-126) U/L Troponin I <0.012 (0.000-0.034) ng/mL Total Protein (6.3-8.2) g/dL Albumin (3.5-5.0) g/dL Blood Type A Positive Blood Type Confirm A Positive Blood Type Recheck No Previous Record Bld Type Recheck Status CABO Indicated Antibody Screen NEGATIVE Spec Expiration Date 01/18/2019 - 2324 Disposition Clinical Impression: Hemoptysis, Hyponatremia, Hypokalemia Disposition: Left Against Medical Advice Instructions (If sedation given, give patient instructions): Hemoptysis (ED) Prescriptions: Potassium Chloride ER [K-Dur 20] 20 meq PO DAILY #10 tab Referrals: Pk Castano DO [Primary Care Provider] - 1-2 days Time of Disposition: 16:54
[2019-01-15 12:47] VITALS: RESP 18
[2019-01-15 12:48] LABS: Anisocytosis Moderate; Basophils % (A) 0 %; Eosinophils % (A) 0 %; HCT 31.7 % (34.0-46.0); HGB 10.5 gm/dL (11.4-16.0); Lymphocytes # (A) 0.1 k/uL (1.0-4.8); Lymphocytes % (A) 2 %; MCH 27.8 pg (25.0-35.0); MCHC 33.2 g/dL (31.0-37.0); MCV 83.7 fL (80.0-100.0); Mean Platelet Volume 6.6; Microcytosis Slight; Monocytes # (A) 0.3 k/uL (0-1.0); Monocytes % (A) 5 %; Neutrophils % (A) 92 %; Platelet Count 372 k/uL (150-450); RBC 3.79 m/uL (3.80-5.40); RDW 22.4 % (11.5-15.5); WBC 6.5 k/uL (3.8-10.6)
[2019-01-15 12:58] LABS: Partial Thromboplastin Time 26.7 sec (22.0-30.0); Prothrombin Time 10.7 sec (9.0-12.0)
[2019-01-15 13:07] LABS: Albumin 3.8 g/dL (3.5-5.0); Calcium 8.8 mg/dL (8.4-10.2); Total Bilirubin 1.6 mg/dL (0.2-1.3); Total Protein 6.8 g/dL (6.3-8.2)
[2019-01-15 13:08] LABS: Magnesium 1.7 mg/dL (1.6-2.3); Potassium 2.9 mmol/L (3.5-5.1)
--- NOTE | 2019-01-15 13:18 | XR ---
EXAMINATION TYPE: XR chest 2V DATE OF EXAM: 01/15/2019 COMPARISON: 11/04/2018 TECHNIQUE: PA and lateral views submitted. HISTORY: Hemoptysis FINDINGS: There is a destructive mass in the right upper lobe with oral based and appears to result in destruct ion of the posterior right sixth rib. Prior right hilar mass or adenopathy is seen with bronchial kate nt. Left lung clear. Diffuse osteopenia. No overt failure. Atherosclerotic change aorta. Hypertrophic and degenerative change of the spine. IMPRESSION: 1. Right upper lobe mass with destruction of the posterior right sixth rib. 2. Right hilar mass or adenopathy suspected.
[2019-01-15 13:33] LABS: D-Dimer 1.08 mg/L FEU (<0.60)
--- NOTE | 2019-01-15 15:01 | CT ---
EXAMINATION TYPE: CT chest angio for PE DATE OF EXAM: 01/15/2019 COMPARISON: November 13, 2018 HISTORY: Hemoptysis CT DLP: 240.4 mGycm CONTRAST: CT chest with contrast and 3D reconstruction with MIP imaging is performed without and with IV Contra st, patient injected with 100 ml mL of Isovue 370. Contrast-enhanced CT of the chest was performed through the course of the pulmonary arteries with faustino g and mediastinal window settings submitted. 3D reconstruction with MIP imaging was also performed. PULMONARY ARTERIES: The pulmonary arteries and their major tributaries are patent. I do not see yuval dence for sizable filling defect to suggest pulmonary embolic process. LUNGS: Redemonstrated is metallic stent in the right middle lobe bronchus with surrounding masslike c onsolidation noted. No significant change from previous identified. Persistent right upper lobe pulmo nary nodules are redemonstrated bilobed nodule seen. There is slight decrease in size noted. The maxi mal measurement is 1.9 cm versus 2.2 cm previously. Right midlung zone pleural-based mass with rib de struction is again identified. MEDIASTINUM: Thoracic aorta is of normal caliber,however, evaluation is limited given timing of the contrast bolus. If there is concern for thoracic aortic pathology consider KENNEDY. Correlate clinicall y . The heart is not enlarged. No evidence for mediastinal mass. No mediastinal lymph nodes greater than 1cm. HILAR STRUCTURES: No evidence for mass. No hilar lymph nodes greater than 1 cm. UPPER ABDOMEN: No significant abnormality is seen. IMPRESSION: 1. No evidence for Pulmonary embolism at this time. 2. Masslike consolidation right middle lobe surrounds metallic stent of the right middle lobe bronchu s. Scattered pulmonary nodules and pleural-based mass as discussed.
[2019-01-15] MEDS ORDERED: POTASSIUM CHLORIDE ER 20 MEQ TAB.ER PO STA (16:56)
[2019-01-15 17:01] VITALS: BP 90/66; PULSE 86
== END 2019-01-15 17:14 | disposition left against medical advice (07) ==
LOC: EC 12:04
DX: R04.2 Hemoptysis (principal); E87.1 Hypo-osmolality and hyponatremia; E87.6 Hypokalemia; E78.5 Hyperlipidemia, unspecified; I10 Essential (primary) hypertension; I25.2 Old myocardial infarction; Z79.899 Other long term (current) drug therapy
CPT/HCPCS: 99285; 96360; 96361; 86900; 86901; 85379; 80053; 83735; 84484; 85025; 85610; 85730; 86850; 71046; 71275; Q9967

== ENCOUNTER 2019-01-16 06:41 | Inpatient (IN) | payer MEDICARE ==
[2019-01-16] MEDS ORDERED: PANTOPRAZOLE 40 MG/10 ML VIAL IVP STA (06:57)
--- NOTE | 2019-01-16 07:06 | ED ---
GI Bleed HPI - General Source: patient, family, EMS, RN notes reviewed Mode of arrival: EMS Limitations: no limitations <Tony Cowan - Last Filed: 01/16/19 08:07> <Sydni Godoy - Last Filed: 01/20/19 22:28> - General Chief complaint: GI Bleed Stated complaint: GI Bleed Time Seen by Provider: 01/16/19 06:42 - History of Present Illness Initial comments: This is a 63-year-old female presents emergency department via EMS with chief complaint of coughing up blood. Patient was seen here yesterday and evaluated for similar complaints. Patient signed out AGAINST MEDICAL ADVICE yesterday. Patient does have known lung cancer last treatment of chemoradiation approximately 2 and half weeks ago. Patient was on Plavix but states that she has not taken it. Patient denies any fevers or chills. She states that she did feel dizzy after last episode of hemoptysis. She states this was an largest amount that she had so far. Patient did have CT of her chest x-ray was negative for PE, did show masslike structure. She has no complaints of abdominal pain including nausea vomiting. She states today it was not a coughing fit she states that it just came up she is unsure where the blood came from. (Tony Cowan) - Related Data Home Medications Medication Instructions Recorded Confirmed Ibuprofen [Motrin] 800 mg PO TID PRN 01/28/18 01/16/19 Nitroglycerin Sl Tabs [Nitrostat] 0.4 mg PO Q5M PRN 01/28/18 01/16/19 Pramipexole [Mirapex] 0.125 mg PO HS 01/28/18 01/16/19 Rosuvastatin [Crestor] 20 mg PO HS 01/28/18 01/16/19 Spironolactone [Aldactone] 25 mg PO QAM 01/28/18 01/16/19 Aspirin [Adult Low Dose Aspirin EC] 81 mg PO HS 05/22/18 01/16/19 Pantoprazole Sodium [Protonix] 40 mg PO BID 07/10/18 01/16/19 Clopidogrel Bisulfate [Plavix] 75 mg PO DAILY 07/24/18 01/16/19 Acetaminophen [Tylenol] 650 mg PO Q6H PRN 11/04/18 01/16/19 Albuterol Nebulized [Ventolin 2.5 mg INHALATION RT-BID 11/04/18 01/16/19 Nebulized] Gabapentin [Neurontin] 100 mg PO TID 11/04/18 01/16/19 Sennosides-Docusate Sodium 1 tab PO BID 11/04/18 01/16/19 [Senokot-S] oxyCODONE HCL [Roxicodone] 5 mg PO Q4H PRN 11/04/18 01/16/19 tiZANidine HCL [Zanaflex] 4 mg PO Q8HR PRN 11/04/18 01/16/19 Varenicline Tartrate [Chantix 1 mg PO BID 11/26/18 01/16/19 Continuing Pack] Prochlorperazine [Compazine] 5 mg PO Q8HR PRN 12/10/18 01/16/19 Lidocaine Viscous 2% [Xylocaine 15 ml PO Q4H PRN 12/24/18 01/16/19 Viscous] Sucralfate [Carafate] 1 gm PO TID PRN 12/31/18 01/16/19 CHLORPHEN-HYDROcod 8-10mg/5ml 5 ml PO Q12HR PRN 01/16/19 01/16/19 [Tussionex] Clotrimazole Hay [Mycelex 10 mg MUCOUS MEM 5XD 01/16/19 01/16/19 Hay] Escitalopram [Lexapro] 20 mg PO DAILY 01/16/19 01/16/19 Vitamin C/Zinc 1 tab PO DAILY 01/16/19 01/16/19 Allergies Allergy/AdvReac Type Severity Reaction Status Date / Time ketorolac [From Toradol] Allergy Rash/Hives Verified 01/16/19 09:17 orphenadrine [From Norgesic] Allergy Rash/Hives Verified 01/16/19 09:17 tolmetin [From Tolectin] Allergy Rash/Hives Verified 01/16/19 09:17 Review of Systems ROS Other: All systems not noted in ROS Statement are negative. <Tony Cowan - Last Filed: 01/16/19 08:07> ROS Other: All systems not noted in ROS Statement are negative. <Sydni Godoy - Last Filed: 01/20/19 22:28> ROS Statement: Those systems with pertinent positive or pertinent negative responses have been documented in the HPI. Past Medical History Past Medical History: Cancer, Deep Vein Thrombosis (DVT), Hyperlipidemia, Hypertension, Myocardial Infarction (NC), Osteoarthritis (OA) Additional Past Medical History / Comment(s): LOWER BACK PAIN. MASS RIGHT LUNG (SOB). RIGHT MIDDLE LOBE NSC LUNG CANCER. BILATERAL LOWER LEGS DVT. BRONCHITIS Last Myocardial Infarction Date:: 1995 History of Any Multi-Drug Resistant Organisms: None Reported Past Surgical History: Back Surgery, Breast Surgery, Heart Catheterization, Hysterectomy, Orthopedic Surgery Additional Past Surgical History / Comment(s): RIGHT ROTATOR CUFF. THYROID. LEFT BREAST BX (NEG). RIGHT LOWER LEG STENT. TH[facility]OTOMY AT [facility] - [facility] 2018 Past Anesthesia/Blood Transfusion Reactions: No Reported Reaction Past Psychological History: Depression Smoking Status: Former smoker Past Alcohol Use History: None Reported Past Drug Use History: None Reported - Past Family History Mother Family Medical History: Cancer Additional Family Medical History / Comment(s): lung cancer. mesothelioma <Tony Cowan - Last Filed: 01/16/19 08:07> General Exam Limitations: no limitations General appearance: alert, in no apparent distress, cachectic Head exam: Present: atraumatic, normocephalic, normal inspection Eye exam: Present: normal appearance, PERRL, EOMI. Absent: scleral icterus, conjunctival injection, periorbital swelling ENT exam: Present: normal exam, normal oropharynx, mucous membranes moist Neck exam: Present: normal inspection, full ROM. Absent: tenderness, meningismus, lymphadenopathy Respiratory exam: Present: wheezes, rhonchi. Absent: normal lung sounds bilaterally, respiratory distress, rales, stridor Cardiovascular Exam: Present: normal rhythm, tachycardia, normal heart sounds. Absent: systolic murmur, diastolic murmur, rubs, gallop, clicks GI/Abdominal exam: Present: soft, normal bowel sounds. Absent: distended, tenderness, guarding, rebound, rigid Neurological exam: Present: alert, oriented X3 Skin exam: Present: warm, dry, intact, normal color. Absent: rash <Tony Cowan M - Last Filed: 01/16/19 08:07> Course Vital Signs 01/16/19 01/16/19 01/16/19 06:50 07:47 08:52 Temperature 97.8 F Pulse Rate 102 H 101 H 48 L Respiratory 20 20 19 Rate Blood Pressure 91/67 84/65 106/74 O2 Sat by Pulse 90 L 98 99 Oximetry 01/16/19 01/16/19 01/16/19 09:29 10:27 10:57 Temperature Pulse Rate 114 H 90 98 Respiratory 20 18 18 Rate Blood Pressure 104/88 88/64 104/72 O2 Sat by Pulse 92 L 94 L 98 Oximetry 01/16/19 01/16/19 01/16/19 12:36 14:18 14:45 Temperature Pulse Rate 50 L 51 L 91 Respiratory 18 18 22 Rate Blood Pressure 71/50 82/59 69/45 O2 Sat by Pulse 96 97 97 Oximetry 01/16/19 01/16/19 15:00 15:46 Temperature Pulse Rate 89 59 L Respiratory 18 20 Rate Blood Pressure 78/58 91/64 O2 Sat by Pulse 98 98 Oximetry Procedures - Central Line Placement Right IJ Consent Obtained: verbal consent, written consent Patient Placed on Monitor/Pulse Ox: Yes MD Prep: mask, gown, gloves Central Line Prep: Chlorhexidine scrub, sterile drapes applied Local Anesthesia Used: Lidocaine 1% Amount of Anesthesia Used (mls): 6 (cc) Ultrasound Used for Placement: Yes Central Line Lumen Inserted: triple Bloods Obtained for Lab: No Central Line Position: good blood return, all ports aspirated, flushed, capped, sutured in place with nylon Dressing Applied: Tegaderm Post Procedure X-Ray: tip of catheter in good position Patient Tolerated Procedure: well, no complications Complications: none <Sydni Godoy - Last Filed: 01/20/19 22:28> Medical Decision Making - Lab Data Result diagrams: 01/16/19 06:50 01/16/19 06:50 - EKG Data -: EKG Interpreted by Nm <Tony Cowan - Last Filed: 01/16/19 08:07> - Lab Data Result diagrams: 01/16/19 14:50 01/16/19 06:50 <Sydni Godoy - Last Filed: 01/20/19 22:28> - Medical Decision Making Patient was accepted for admission by Dr. Singh. She had been awaiting a bed on the floor for 2.5 hours. I then received a call from admitting doctor who s tated that [facility] [place] [facility]. Tony called [facility] and initiated the transfer however they stated that it would be several hours before the patient could be transferred as they had 10 people awaiting ICU beds there. I called and disc ussed this with Dr. Singh, who recommended I discuss it with Dr. Pham. Dr. Pham did agree to watch the patient in the ICU until transfer. During this time, the patient became hypotensive requiring central line placement by myself and transfusion of [address] Singh was no longer available for the weekend so I discussed the case with Dr. Wells who accepted admission for the patient. The patient then went to the ICU in critical condition. (Sydni Godoy) - Lab Data Lab Results 01/16/19 01/16/19 01/16/19 Range/Units 06:50 06:50 06:50 WBC 12.1 H (3.8-10.6) k/uL RBC 3.55 L (3.80-5.40) m/uL Hgb 9.9 L (11.4-16.0) gm/dL Hct 30.4 L (34.0-46.0) % MCV 85.7 (80.0-100.0) fL MCH 27.8 (25.0-35.0) pg MCHC 32.4 (31.0-37.0) g/dL RDW 22.3 H (11.5-15.5) % Plt Count 396 (150-450) k/uL Neutrophils % 93 % Lymphocytes % 3 % Monocytes % 3 % Eosinophils % 0 % Basophils % 0 % Neutrophils # 11.2 H (1.3-7.7) k/uL Lymphocytes # 0.3 L (1.0-4.8) k/uL Monocytes # 0.4 (0-1.0) k/uL Eosinophils # 0.0 (0-0.7) k/uL Basophils # 0.0 (0-0.2) k/uL Hypochromasia Slight Anisocytosis Moderate Microcytosis Slight PT 11.2 (9.0-12.0) sec INR 1.1 (<1.2) APTT 25.2 (22.0-30.0) sec Sodium 131 L (137-145) mmol/L Potassium 2.8 L (3.5-5.1) mmol/L Chloride 84 L (98-107) mmol/L Carbon Dioxide 32 H (22-30) mmol/L Anion Gap 15 mmol/L BUN 14 (7-17) mg/dL Creatinine 1.07 H (0.52-1.04) mg/dL Est GFR (CKD-EPI)AfAm 64 (>60 ml/min/1.73 sqM) Est GFR (CKD-EPI)NonAf 56 (>60 ml/min/1.73 sqM) Glucose 148 H (74-99) mg/dL Lactic Ac Sepsis Rflx Plasma Lactic Acid Mumtaz (0.7-2.0) mmol/L Calcium 8.4 (8.4-10.2) mg/dL Magnesium 1.7 (1.6-2.3) mg/dL Total Bilirubin 1.1 (0.2-1.3) mg/dL AST 27 (14-36) U/L ALT 24 (9-52) U/L Alkaline Phosphatase 103 (38-126) U/L Troponin I (0.000-0.034) ng/mL NT-Pro-B Natriuret Pep pg/mL Total Protein 5.8 L (6.3-8.2) g/dL Albumin 3.3 L (3.5-5.0) g/dL Blood Type Blood Type Recheck Bld Type Recheck Status Antibody Screen Crossmatch Spec Expiration Date 01/16/19 01/16/19 01/16/19 Range/Units 06:50 06:50 06:50 WBC (3.8-10.6) k/uL RBC (3.80-5.40) m/uL Hgb (11.4-16.0) gm/dL Hct (34.0-46.0) % MCV (80.0-100.0) fL MCH (25.0-35.0) pg MCHC (31.0-37.0) g/dL RDW (11.5-15.5) % Plt Count (150-450) k/uL Neutrophils % % Lymphocytes % % Monocytes % % Eosinophils % % Basophils % % Neutrophils # (1.3-7.7) k/uL Lymphocytes # (1.0-4.8) k/uL Monocytes # (0-1.0) k/uL Eosinophils # (0-0.7) k/uL Basophils # (0-0.2) k/uL Hypochromasia Anisocytosis Microcytosis PT (9.0-12.0) sec INR (<1.2) APTT (22.0-30.0) sec Sodium (137-145) mmol/L Potassium (3.5-5.1) mmol/L Chloride (98-107) mmol/L Carbon Dioxide (22-30) mmol/L Anion Gap mmol/L BUN (7-17) mg/dL Creatinine (0.52-1.04) mg/dL Est GFR (CKD-EPI)AfAm (>60 ml/min/1.73 sqM) Est GFR (CKD-EPI)NonAf (>60 ml/min/1.73 sqM) Glucose (74-99) mg/dL Lactic Ac Sepsis Rflx Plasma Lactic Acid Mumtaz 4.1 H* (0.7-2.0) mmol/L Calcium (8.4-10.2) mg/dL Magnesium (1.6-2.3) mg/dL Total Bilirubin (0.2-1.3) mg/dL AST (14-36) U/L ALT (9-52) U/L Alkaline Phosphatase (38-126) U/L Troponin I <0.012 (0.000-0.034) ng/mL NT-Pro-B Natriuret Pep 547 pg/mL Total Protein (6.3-8.2) g/dL Albumin (3.5-5.0) g/dL Blood Type Blood Type Recheck Bld Type Recheck Status Antibody Screen Crossmatch Spec Expiration Date 01/16/19 01/16/19 Range/Units 06:54 07:33 WBC (3.8-10.6) k/uL RBC (3.80-5.40) m/uL Hgb (11.4-16.0) gm/dL Hct (34.0-46.0) % MCV (80.0-100.0) fL MCH (25.0-35.0) pg MCHC (31.0-37.0) g/dL RDW (11.5-15.5) % Plt Count (150-450) k/uL Neutrophils % % Lymphocytes % % Monocytes % % Eosinophils % % Basophils % % Neutrophils # (1.3-7.7) k/uL Lymphocytes # (1.0-4.8) k/uL Monocytes # (0-1.0) k/uL Eosinophils # (0-0.7) k/uL Basophils # (0-0.2) k/uL Hypochromasia Anisocytosis Microcytosis PT (9.0-12.0) sec INR (<1.2) APTT (22.0-30.0) sec Sodium (137-145) mmol/L Potassium (3.5-5.1) mmol/L Chloride (98-107) mmol/L Carbon Dioxide (22-30) mmol/L Anion Gap mmol/L BUN (7-17) mg/dL Creatinine (0.52-1.04) mg/dL Est GFR (CKD-EPI)AfAm (>60 ml/min/1.73 sqM) Est GFR (CKD-EPI)NonAf (>60 ml/min/1.73 sqM) Glucose (74-99) mg/dL Lactic Ac Sepsis Rflx Y Plasma Lactic Acid Mumtaz (0.7-2.0) mmol/L Calcium (8.4-10.2) mg/dL Magnesium (1.6-2.3) mg/dL Total Bilirubin (0.2-1.3) mg/dL AST (14-36) U/L ALT (9-52) U/L Alkaline Phosphatase (38-126) U/L Troponin I (0.000-0.034) ng/mL NT-Pro-B Natriuret Pep pg/mL Total Protein (6.3-8.2) g/dL Albumin (3.5-5.0) g/dL Blood Type A Positive Blood Type Recheck A Pos Bld Type Recheck Status No Antibody Screen NEGATIVE Crossmatch See Detail Spec Expiration Date 01/19/2019 - 2240 - EKG Data EKG Comments: EKG performed at 7:02 normal sinus rhythm incomplete right bundle prolonged QT rate of 89 MS 136 QRS 100 QT/QTC 422/513 (Tony Cowan) Critical Care Time Critical Care Time: Yes Total Critical Care Time: 35 <Tony Cowan - Last Filed: 01/16/19 08:07> Critical Care Time: Total 35 minutes of critical care time were used to initially evaluated patient, reviewed past medical history, review past medical records, initial order of labs, chest x-ray EKG. Patient's found to have a large amount of hemoptysis, hemoglobin 9.9 hemoglobin yesterday 10.5. Patient remains to have hypokalemia replaced with oral potassium at this time. Chest x-ray shows possible developing infiltrate patient was given Rocephin, azithromycin blood cultures are drawn. Lactic acidosis noted may related to dehydration, current bleeding or possible early sepsis. Patient will be admitted for evaluation by oncology, pulmonology and log sorter. (Tony Cowan) Disposition <Tony Cowan - Last Filed: 01/16/19 08:07> <Sydni Godoy - Last Filed: 01/20/19 22:28> Clinical Impression: Right lower lobe lung mass, Hemoptysis, Hypokalemia, Pneumonia, Lung cancer Disposition: ADMITTED IP TO THIS HOSP Condition: Serious
[2019-01-16 07:23] LABS: Anisocytosis Moderate; Basophils % (A) 0 %; Eosinophils % (A) 0 %; HCT 30.4 % (34.0-46.0); HGB 9.9 gm/dL (11.4-16.0); Hypochromasia Slight; Lymphocytes # (A) 0.3 k/uL (1.0-4.8); Lymphocytes % (A) 3 %; MCH 27.8 pg (25.0-35.0); MCHC 32.4 g/dL (31.0-37.0); MCV 85.7 fL (80.0-100.0); Mean Platelet Volume 6.3; Microcytosis Slight; Monocytes # (A) 0.4 k/uL (0-1.0); Monocytes % (A) 3 %; Neutrophils # (A) 11.2 k/uL (1.3-7.7); Neutrophils % (A) 93 %; Platelet Count 396 k/uL (150-450); RBC 3.55 m/uL (3.80-5.40); RDW 22.3 % (11.5-15.5); WBC 12.1 k/uL (3.8-10.6)
[2019-01-16] MEDS ORDERED: SODIUM CHLORIDE 0.9% 1,000 ML IV ONE (07:25)
[2019-01-16 07:32] LABS: Albumin 3.3 g/dL (3.5-5.0); Calcium 8.4 mg/dL (8.4-10.2); Magnesium 1.7 mg/dL (1.6-2.3); Potassium 2.8 mmol/L (3.5-5.1); Total Bilirubin 1.1 mg/dL (0.2-1.3); Total Protein 5.8 g/dL (6.3-8.2)
[2019-01-16 07:37] LABS: INR 1.1 (<1.2); Partial Thromboplastin Time 25.2 sec (22.0-30.0); Prothrombin Time 11.2 sec (9.0-12.0)
[2019-01-16] MEDS ORDERED: POTASSIUM CHLORIDE ER 20 MEQ TAB.ER PO STA (07:40)
[2019-01-16] MEDS ORDERED: cefTRIAXone IN SWFI 1,000 MG/10 ML SYRINGE IVP STA (07:42)
--- NOTE | 2019-01-16 07:48 | XR ---
EXAMINATION TYPE: XR chest 2V DATE OF EXAM: 01/16/2019 COMPARISON: 01/15/2019 HISTORY: Hemoptysis and chest pain. Known lung cancer. TECHNIQUE: Frontal and lateral views of the chest are obtained. FINDINGS: Increasing consolidation in the right lower lobe at the patient's known lung cancer locati on. Bronchial stent overlies the increasing consolidation. Postthoracotomy changes are seen of the ri bs. Minimal bilateral pulmonary nodules are better evaluated on the prior CT of 01/15/2019. No sizable pleural effusion or pneumothorax. Cardiomediastinal silhouette is within normal limits. IMPRESSION: Masslike consolidation in the right lower lobe surrounding the bronchial stent in the re gion of the patient's known lung cancer has increased since 01/15/2019 and therefore surrounding atele ctasis or developing pneumonia are considerations given the short-term worsening.
[2019-01-16] MEDS ORDERED: fentaNYL (PF) 50 MCG/ML 2 ML AMP IVP STA (07:50)
[2019-01-16] MEDS ORDERED: SODIUM CHLORIDE 0.9% 500 ML 500 ML IV ONE ×2 (07:50→08:42)
[2019-01-16] MEDS ORDERED: AZITHROMYCIN 500 MG in SODIUM CHLORIDE 0.9% 250 ML IVPB STA (08:07)
[2019-01-16] MEDS ORDERED: NALOXONE 0.4 MG/ML 1 ML VIAL IV PRN (08:14)
--- NOTE | 2019-01-16 08:44 | ED ---
Medical Decision Making - Lab Data Result diagrams: 01/16/19 06:50 01/16/19 06:50 <ShimawilbertTony Handy - Last Filed: 01/16/19 08:43> - Lab Data Result diagrams: 01/16/19 14:50 01/16/19 06:50 <Sydni Godoy - Last Filed: 01/20/19 22:50> - Medical Decision Making Levophed was started after central line placement. Levothyroid is incorrect. (Sydni Godoy) - Lab Data Lab Results 01/16/19 01/16/19 01/16/19 Range/Units 06:50 06:50 06:50 WBC 12.1 H (3.8-10.6) k/uL RBC 3.55 L (3.80-5.40) m/uL Hgb 9.9 L (11.4-16.0) gm/dL Hct 30.4 L (34.0-46.0) % MCV 85.7 (80.0-100.0) fL MCH 27.8 (25.0-35.0) pg MCHC 32.4 (31.0-37.0) g/dL RDW 22.3 H (11.5-15.5) % Plt Count 396 (150-450) k/uL Neutrophils % 93 % Lymphocytes % 3 % Monocytes % 3 % Eosinophils % 0 % Basophils % 0 % Neutrophils # 11.2 H (1.3-7.7) k/uL Lymphocytes # 0.3 L (1.0-4.8) k/uL Monocytes # 0.4 (0-1.0) k/uL Eosinophils # 0.0 (0-0.7) k/uL Basophils # 0.0 (0-0.2) k/uL Hypochromasia Slight Anisocytosis Moderate Microcytosis Slight PT 11.2 (9.0-12.0) sec INR 1.1 (<1.2) APTT 25.2 (22.0-30.0) sec Sodium 131 L (137-145) mmol/L Potassium 2.8 L (3.5-5.1) mmol/L Chloride 84 L (98-107) mmol/L Carbon Dioxide 32 H (22-30) mmol/L Anion Gap 15 mmol/L BUN 14 (7-17) mg/dL Creatinine 1.07 H (0.52-1.04) mg/dL Est GFR (CKD-EPI)AfAm 64 (>60 ml/min/1.73 sqM) Est GFR (CKD-EPI)NonAf 56 (>60 ml/min/1.73 sqM) Glucose 148 H (74-99) mg/dL Lactic Ac Sepsis Rflx Plasma Lactic Acid Mumtaz (0.7-2.0) mmol/L Calcium 8.4 (8.4-10.2) mg/dL Magnesium 1.7 (1.6-2.3) mg/dL Total Bilirubin 1.1 (0.2-1.3) mg/dL AST 27 (14-36) U/L ALT 24 (9-52) U/L Alkaline Phosphatase 103 (38-126) U/L Troponin I (0.000-0.034) ng/mL NT-Pro-B Natriuret Pep pg/mL Total Protein 5.8 L (6.3-8.2) g/dL Albumin 3.3 L (3.5-5.0) g/dL Blood Type Blood Type Recheck Bld Type Recheck Status Antibody Screen Crossmatch Spec Expiration Date 01/16/19 01/16/19 01/16/19 Range/Units 06:50 06:50 06:50 WBC (3.8-10.6) k/uL RBC (3.80-5.40) m/uL Hgb (11.4-16.0) gm/dL Hct (34.0-46.0) % MCV (80.0-100.0) fL MCH (25.0-35.0) pg MCHC (31.0-37.0) g/dL RDW (11.5-15.5) % Plt Count (150-450) k/uL Neutrophils % % Lymphocytes % % Monocytes % % Eosinophils % % Basophils % % Neutrophils # (1.3-7.7) k/uL Lymphocytes # (1.0-4.8) k/uL Monocytes # (0-1.0) k/uL Eosinophils # (0-0.7) k/uL Basophils # (0-0.2) k/uL Hypochromasia Anisocytosis Microcytosis PT (9.0-12.0) sec INR (<1.2) APTT (22.0-30.0) sec Sodium (137-145) mmol/L Potassium (3.5-5.1) mmol/L Chloride (98-107) mmol/L Carbon Dioxide (22-30) mmol/L Anion Gap mmol/L BUN (7-17) mg/dL Creatinine (0.52-1.04) mg/dL Est GFR (CKD-EPI)AfAm (>60 ml/min/1.73 sqM) Est GFR (CKD-EPI)NonAf (>60 ml/min/1.73 sqM) Glucose (74-99) mg/dL Lactic Ac Sepsis Rflx Plasma Lactic Acid Mumtaz 4.1 H* (0.7-2.0) mmol/L Calcium (8.4-10.2) mg/dL Magnesium (1.6-2.3) mg/dL Total Bilirubin (0.2-1.3) mg/dL AST (14-36) U/L ALT (9-52) U/L Alkaline Phosphatase (38-126) U/L Troponin I <0.012 (0.000-0.034) ng/mL NT-Pro-B Natriuret Pep 547 pg/mL Total Protein (6.3-8.2) g/dL Albumin (3.5-5.0) g/dL Blood Type Blood Type Recheck Bld Type Recheck Status Antibody Screen Crossmatch Spec Expiration Date 01/16/19 01/16/19 Range/Units 06:54 07:33 WBC (3.8-10.6) k/uL RBC (3.80-5.40) m/uL Hgb (11.4-16.0) gm/dL Hct (34.0-46.0) % MCV (80.0-100.0) fL MCH (25.0-35.0) pg MCHC (31.0-37.0) g/dL RDW (11.5-15.5) % Plt Count (150-450) k/uL Neutrophils % % Lymphocytes % % Monocytes % % Eosinophils % % Basophils % % Neutrophils # (1.3-7.7) k/uL Lymphocytes # (1.0-4.8) k/uL Monocytes # (0-1.0) k/uL Eosinophils # (0-0.7) k/uL Basophils # (0-0.2) k/uL Hypochromasia Anisocytosis Microcytosis PT (9.0-12.0) sec INR (<1.2) APTT (22.0-30.0) sec Sodium (137-145) mmol/L Potassium (3.5-5.1) mmol/L Chloride (98-107) mmol/L Carbon Dioxide (22-30) mmol/L Anion Gap mmol/L BUN (7-17) mg/dL Creatinine (0.52-1.04) mg/dL Est GFR (CKD-EPI)AfAm (>60 ml/min/1.73 sqM) Est GFR (CKD-EPI)NonAf (>60 ml/min/1.73 sqM) Glucose (74-99) mg/dL Lactic Ac Sepsis Rflx Y Plasma Lactic Acid Mumtaz (0.7-2.0) mmol/L Calcium (8.4-10.2) mg/dL Magnesium (1.6-2.3) mg/dL Total Bilirubin (0.2-1.3) mg/dL AST (14-36) U/L ALT (9-52) U/L Alkaline Phosphatase (38-126) U/L Troponin I (0.000-0.034) ng/mL NT-Pro-B Natriuret Pep pg/mL Total Protein (6.3-8.2) g/dL Albumin (3.5-5.0) g/dL Blood Type A Positive Blood Type Recheck A Pos Bld Type Recheck Status No Antibody Screen NEGATIVE Crossmatch See Detail Spec Expiration Date 01/19/2019 - 2354 Disposition <Tony Cowan - Last Filed: 01/16/19 08:43> <Sydni Godoy - Last Filed: 01/20/19 22:50> Clinical Impression: Right lower lobe lung mass, Hemoptysis, Hypokalemia, Pneumonia, Lung cancer Disposition: ADMITTED IP TO THIS HOSP Condition: Serious Procedures - Sepsis Sepsis Focused Exam #1 Time Sepsis Criteria Met: 08:43 Sepsis Focused Exam Date: 01/16/19 Sepsis Focused Exam Time: 08:43 Sepsis Focused Exam Complete: Yes Vital Signs & RN Notes Reviewed: Yes Capillary Refill: < 2 Seconds: Fingers, Toes Peripheral Pulses: Normal: Radial (R), Radial (L), Posterior Tibialis (R), Posterior Tibialis (L), Dorsalis Pedis (R), Dorsalis Pedis (L) Skin Color: Normal for Patient Respiratory Exam: wheezes, rhonchi Cardiovascular Exam: regular rate, normal rhythm <Tony Cowan - Last Filed: 01/16/19 08:43>
[2019-01-16] MEDS ORDERED: tiZANidine 4 MG TAB PO PRN (09:36)
[2019-01-16] MEDS ORDERED: SUCRALFATE 1 GM TAB PO PRN (09:36)
[2019-01-16] MEDS ORDERED: ACETAMINOPHEN TAB 325 MG TAB PO PRN (09:36)
[2019-01-16] MEDS ORDERED: PROCHLORPERAZINE 5 MG TAB PO PRN (09:36)
--- NOTE | 2019-01-16 13:19 | P.CNPUL ---
History of Present Illness Consult date: 01/16/19 Requesting physician: Daniel Singh Reason for consult: other Chief complaint: Massive hemoptysis History of present illness: This is a 63-year-old white female patient of Dr. Castano, with history of squamous cell carcinoma of the right lung, who recently finished her chemotherapy and radiation, who came in to the emergency department yesterday on 01/15/2019 for evaluation of massive amount of bright red hemoptysis. It started early in the morning, and it was not preceded by any fever, chills, cough or congestion, patient stated that she had been very fatigued after finishing her chemo and radiation, but otherwise she felt fine. She denied any chest pain. Denied any nausea, denied any black tarry stools. She stated the bleeding started very suddenly, and patient was not so much coughing but it was more pouring out of her. No significant phlegm. No abdominal pain, and patient states it definitely was not vomiting. She denied any lightheadedness or dizziness. Denied any dark black tarry stools, no back pain. Patient normally takes low-dose aspirin, and Plavix for history of severe peripheral vascular disease with previous stenting in her right leg, and up in a patient also has stenosis in her left leg that needs possible intervention in the future. Patient is diagnosis of lung cancer was made by Dr. Collins in February 2018 after performing an navigational bronchoscopy for investigation of a large mass obstructing partially the right lower lobe bronchus. Transbronchial biopsy of the right middle lobe was positive for squamous cell carcinoma. PET scan also showed uptake in the right infrahilar mass in the right middle lobe and pretracheal and subcarinal lymph nodes, more distant metastasis was not identified, MRI of the brain was negative for metastatic disease. Patient was sent to [facility] for endobronchial ultrasound biopsy of the 5 mediastinal lymph nodes and they were all reportedly negative. As such patient was deemed to be appropriate for surgical intervention. Despite her 40+ packs of smoking, her pulmonary function was excellent, with FEV1 of 2.31 L or 97% of predicted and FVC of 2.89 L, with mild diffusion defect and DLVA of 77% of predicted. Patient was referred to Dr. Jordan for surgical resection, however in view of right middle lobe obstruction related to the endobrochial tumor, patient required a metal stent placement by Dr. Cross at the [facility]. The bleeding had spontaneously resolved. CTA chest was completed showing no evidence of pulmonary embolism, and a masslike consolidation in the right middle lobe surrounding the metallic stent in the right middle lobe bronchus, and scattered pulmonary nodules and pleural based mass. Patient has not been taking her Plavix for last few days. Because the bleeding had resolved patient left the emergency department, where she had to return early this morning when the bleeding resumed and patient again had large amount of bright red thin blood expectorated from her lungs. The bleeding again spontaneously subsided, now patient is only bringing up some blood clots. Hemodynamically she remains stable. Chest x-ray shows no new masslike consolidation in the right lower lobe surrounding the bronchial stent, and a possibility of atelectasis or developing pneumonia, patient was given some empiric antibiotics. She received IV hydration a total of 2 L, denies any chest pain, she appears to be weak and fatigued, slightly tachycardic with a heart rate in the low 100s, sinus mechanism, on 4 L of oxygen and pulse ox is 90%, she is afebrile. And were asked to see the patient for evaluation of the massive hemoptysis Review of Systems All systems: negative Constitutional: Denies chills, Denies fever Eyes: denies blurred vision, denies pain Ears, nose, mouth and throat: Denies headache, Denies sore throat Cardiovascular: Denies chest pain, Denies shortness of breath Respiratory: Reports dyspnea, Reports hemoptysis, Reports home oxygen, Denies cough Gastrointestinal: Denies abdominal pain, Denies diarrhea, Denies nausea, Denies vomiting Genitourinary: Denies dysuria, Denies hematuria Musculoskeletal: Denies myalgias Integumentary: Denies pruritus, Denies rash Neurological: Denies numbness, Denies weakness Psychiatric: Denies anxiety, Denies depression Endocrine: Denies fatigue, Denies weight change Past Medical History Past Medical History: Coronary Artery Disease (CAD), Cancer, Deep Vein Thrombosis (DVT), Hyperlipidemia, Hypertension, Myocardial Infarction (MA), Osteoarthritis (OA), Pneumonia, Vascular Disorder Additional Past Medical History / Comment(s): R mid lung cancer with chemo that ended 12/31/18 and radiation that ended 01/08/19, DVTs bilateral lower legs, bronchitis, chronic lower back pain/herniated discs, arthritis in multiple olya nts, PVD Last Myocardial Infarction Date:: 1995 History of Any Multi-Drug Resistant Organisms: None Reported Past Surgical History: Back Surgery, Breast Surgery, Heart Catheterization, Hysterectomy, Orthopedic Surgery Additional Past Surgical History / Comment(s): Bronchoscopies/brushings and biopsy, R lung stent Jun, 2017 at [facility], thoracotomy September, at [facility], benign mass removed from L adrenal gland, L breast benign biopsy, R rotator cuff repair, thyoid surgery for goiter, R lower leg stents x2. Past Anesthesia/Blood Transfusion Reactions: No Reported Reaction Smoking Status: Former smoker - Past Family History Mother Family Medical History: Cancer Additional Family Medical History / Comment(s): lung cancer. mesothelioma Father Family Medical History: Coronary Artery Disease (CAD) Medications and Allergies Home Medications Medication Instructions Recorded Confirmed Type Ibuprofen [Motrin] 800 mg PO TID PRN 01/28/18 01/16/19 History Nitroglycerin Sl Tabs [Nitrostat] 0.4 mg PO Q5M PRN 01/28/18 01/16/19 History Pramipexole [Mirapex] 0.125 mg PO HS 01/28/18 01/16/19 History Rosuvastatin [Crestor] 20 mg PO HS 01/28/18 01/16/19 History Spironolactone [Aldactone] 25 mg PO QAM 01/28/18 01/16/19 History Aspirin [Adult Low Dose Aspirin EC] 81 mg PO HS 05/22/18 01/16/19 History Pantoprazole Sodium [Protonix] 40 mg PO BID 07/10/18 01/16/19 History Clopidogrel Bisulfate [Plavix] 75 mg PO DAILY 07/24/18 01/16/19 History Acetaminophen [Tylenol] 650 mg PO Q6H PRN 11/04/18 01/16/19 History Albuterol Nebulized [Ventolin 2.5 mg INHALATION RT-BID 11/04/18 01/16/19 History Nebulized] Gabapentin [Neurontin] 100 mg PO TID 11/04/18 01/16/19 History Sennosides-Docusate Sodium 1 tab PO BID 11/04/18 01/16/19 History [Senokot-S] oxyCODONE HCL [Roxicodone] 5 mg PO Q4H PRN 11/04/18 01/16/19 History tiZANidine HCL [Zanaflex] 4 mg PO Q8HR PRN 11/04/18 01/16/19 History Varenicline Tartrate [Chantix 1 mg PO BID 11/26/18 01/16/19 History Continuing Pack] Prochlorperazine [Compazine] 5 mg PO Q8HR PRN 12/10/18 01/16/19 History Lidocaine Viscous 2% [Xylocaine 15 ml PO Q4H PRN 12/24/18 01/16/19 History Viscous] Sucralfate [Carafate] 1 gm PO TID PRN 12/31/18 01/16/19 History CHLORPHEN-HYDROcod 8-10mg/5ml 5 ml PO Q12HR PRN 01/16/19 01/16/19 History [Tussionex] Clotrimazole Hay [Mycelex 10 mg MUCOUS MEM 5XD 01/16/19 01/16/19 History Hay] Escitalopram [Lexapro] 20 mg PO DAILY 01/16/19 01/16/19 History Vitamin C/Zinc 1 tab PO DAILY 01/16/19 01/16/19 History Allergies Allergy/AdvReac Type Severity Reaction Status Date / Time ketorolac [From Toradol] Allergy Rash/Hives Verified 01/16/19 09:17 orphenadrine [From Norgesic] Allergy Rash/Hives Verified 01/16/19 09:17 tolmetin [From Tolectin] Allergy Rash/Hives Verified 01/16/19 09:17 Physical Exam Vitals: Vital Signs Temp Pulse Resp BP Pulse Ox 01/16/19 12:36 50 L 18 96 01/16/19 10:57 98 18 104/72 98 01/16/19 10:27 90 18 88/64 94 L 01/16/19 09:29 114 H 20 104/88 92 L 01/16/19 08:52 48 L 19 106/74 99 01/16/19 07:47 101 H 20 84/65 98 01/16/19 06:50 97.8 F 102 H 20 91/67 90 L Intake and Output 01/15/19 01/16/19 01/16/19 22:59 06:59 14:59 Other: Weight 65.771 kg 65.771 kg GENERAL EXAM: Alert, pleasant, 63-year-old white female, on 4 L of oxygen with a pulse ox of 98%, appears weak but in no apparent distress. HEAD: Normocephalic/atraumatic. EYES: Normal reaction of pupils, equal size. Conjunctiva pink, sclera white. NOSE: Clear with pink turbinates. THROAT: No erythema or exudates. NECK: No masses, no JVD, no thyroid enlargement, no adenopathy. CHEST: No chest wall deformity. Symmetrical expansion. LUNGS: Diminished air entry with no crackles, wheeze, rhonchi or dullness. CVS: Regular rate and rhythm, normal S1 and S2, no gallops, no murmurs, no rubs ABDOMEN: Soft, nontender. No hepatosplenomegaly, normal bowel sounds, no guarding or rigidity. EXTREMITIES: No clubbing, no edema, no cyanosis, 2+ pulses and upper and lower extremities. MUSCULOSKELETAL: Muscle strength and tone normal. SPINE: No scoliosis or deformity SKIN: No rashes CENTRAL NERVOUS SYSTEM: Alert and oriented -3. No focal deficits, tone is normal in all 4 extremities. PSYCHIATRIC: Alert and oriented -3. Appropriate affect. Intact judgment and insight. Results - Laboratory Findings CBC and BMP: 01/16/19 06:50 01/16/19 06:50 PT/INR, D-dimer PT 11.2 sec (9.0-12.0) 01/16/19 06:50 INR 1.1 (<1.2) 01/16/19 06:50 Abnormal lab findings: Abnormal Labs 01/16/19 01/16/19 01/16/19 06:50 06:50 06:50 WBC 12.1 H RBC 3.55 L Hgb 9.9 L Hct 30.4 L RDW 22.3 H Neutrophils # 11.2 H Lymphocytes # 0.3 L Sodium 131 L Potassium 2.8 L Chloride 84 L Carbon Dioxide 32 H Creatinine 1.07 H Glucose 148 H Plasma Lactic Acid Mumtaz 4.1 H* Total Protein 5.8 L Albumin 3.3 L - Diagnostic Findings Chest x-ray: report reviewed, image reviewed CT scan - chest: report reviewed, image reviewed Assessment and Plan Plan: Assessment: #1. Massive hemoptysis, in a patient with history of squamous cell carcinoma of the lungs and previous endobronchial metal stent placement in the right middle lobe #2. Squamous cell lung carcinoma, diagnosed in February 2018, patient has completed chemo and radiation, and and was referred for surgical resection. PET scan showed increased intake in the right infrahilar mass in the right middle lobe, and pretracheal and subcarinal lymph nodes. Biopsy of the pretracheal subcarinal lymph nodes were reportedly negative, patient was deemed to be a good candidate for surgical resection. No evidence of distant metastasis, brain MRI was negative. Patient had outpatient PFT that showed FEV1 of 2.31 L or 97% of p redicted, an FVC of 2.89 L or 93% of predicted with mild diffusion defect #3. [id number] smoking history, currently in remission #4. Severe peripheral vascular disease with previous stenting of the right lower extremity #5. Hypertension #6. Previous history of DVT #7. Depression Plan: Recommend transferring the patient to [facility] for evaluation of the massive hemoptysis and evaluation of the previously placed endobronchial metal stent in the right middle lobe. Patient may need pulmonary artery embolization. And for that reason patient will need a transfer to the tertiary facility this was discussed with the admitting doctor, and transfer arrangements are currently in progress I performed a history & physical examination of the patient and discussed their management with my nurse practitioner, Kavitha Dixon. I reviewed the nurse practitioner's note and agree with the documented findings and plan of care. Lung sounds are positive for diminished breath sounds. The findings and the impression was discussed with the patient. I attest to the documentation by the nurse practitioner. Time with Patient: Greater than 30
--- NOTE | 2019-01-16 14:14 | XR ---
EXAMINATION TYPE: XR chest 1V DATE OF EXAM: 01/16/2019 COMPARISON: 01/16/2019 HISTORY: Central line placement TECHNIQUE: Single frontal view of the chest is obtained. FINDINGS: Right-sided central line seen with no pneumothorax. Tip of the catheter SVC. Increasing co nsolidation in the right lower lobe at the patient's known lung cancer location. Bronchial stent over lies the increasing consolidation. Postthoracotomy changes are seen of the ribs. Minimal bilateral pu lmonary nodules are better evaluated on the prior CT of 01/15/2019. No sizable pleural effusion or pne umothorax. Cardiomediastinal silhouette is within normal limits. IMPRESSION: 1. Central line placement appears in good position with no sizable pneumothorax. 2. Masslike consolidation in the right lower lobe surrounding the bronchial stent in the region of th e patient's known lung cancer has increased since 01/15/2019 and therefore surrounding atelectasis or developing pneumonia are considerations given the short-term worsening.
[2019-01-16] MEDS ORDERED: NOREPINEPHRINE 32 MG in SODIUM CHLORIDE 0.9% 218 ML IV SCH (14:45)
[2019-01-16 15:28] LABS: Anisocytosis Moderate; Basophils % (A) 0 %; Eosinophils % (A) 0 %; HCT 20.7 % (34.0-46.0); Hypochromasia Slight; Lymphocytes # (A) 0.3 k/uL (1.0-4.8); Lymphocytes % (A) 2 %; Mean Platelet Volume 8.3; Microcytosis Slight; Monocytes # (A) 0.4 k/uL (0-1.0); Monocytes % (A) 4 %; Neutrophils % (A) 92 %; Platelet Count 249 k/uL (150-450); RBC 2.44 m/uL (3.80-5.40); RDW 22.6 % (11.5-15.5); WBC 10.8 k/uL (3.8-10.6)
[2019-01-16 15:32] LABS: HGB 6.8 gm/dL (11.4-16.0)
[2019-01-16] MEDS ORDERED: GABAPENTIN 100 MG CAP PO SCH (16:00)
[2019-01-16 16:33] LABS: Glucose,Whole Blood 106 mg/dL (75-99)
[2019-01-16] MEDS ORDERED: DILTIAZEM DRIP BOLUS FROM BAG 1 MG SOLN IV ONE (17:38)
[2019-01-16] MEDS ORDERED: DILTIAZEM 125 MG in SODIUM CHLORIDE 0.9% 100 ML IV SCH (17:45)
[2019-01-16] MEDS ORDERED: ALBUTEROL NEBULIZED 2.5 MG/3 ML INHALATION SCH (20:00)
[2019-01-16] MEDS ORDERED: PANTOPRAZOLE 40 MG TABLET PO SCH (21:00)
[2019-01-16] MEDS ORDERED: SENNOSIDES-DOCUSATE SODIUM 1 EACH TAB PO SCH (21:00)
[2019-01-16] MEDS ORDERED: PRAMIPEXOLE 0.125 MG TAB PO SCH (21:00)
[2019-01-16] MEDS ORDERED: ATORVASTATIN 40 MG TAB PO SCH (21:00)
--- NOTE | 2019-01-16 22:58 | HP ---
HISTORY AND PHYSICAL This is a combination history and physical examination. DATE OF SERVICE: 01/16/2019 CHIEF COMPLAINTS: Hemoptysis. HISTORY OF PRESENT ILLNESS: This 63-year-old woman with a past medical history of multiple medical problems including history of CAD, history of DVT, history of hypertension, hyperlipidemia, myocardial infarction, pneumonia, history of right lung cancer, being followed by Dr. Pk Castano in the outpatient setting, had a bronchoscopy and stent by Richard Barbosa. The patient finished radiation and chemotherapy, but currently the patient had an episode of hemoptysis which is fairly mild to moderate in quality and the patient came to [facility] yesterday and the patient apparently signed out AGAINST MEDICAL ADVICE yesterday and the patient came back again because of increasing hemoptysis and CT scan was noted. CT scan negative for pulmonary embolism but masslike structure was noted. The patient being closely monitored at this time. As for as the hemoglobin is concerned, initial hemoglobin is 9.9, but after repeat hemoglobin 6.8, 1 unit transfusion being arranged at this time. There is no history of fever, rigors or chills. No history of headache, loss of consciousness or seizures. [facility] team is being contacted at this time. PAST MEDICAL HISTORY: History of lung cancer, status post chemo radiation, history of bronchial stent, history of CAD, history of DVT, hypertension, hyperlipidemia, myocardial infarction, history of back surgery, history of DJD, history of depression. MEDICATIONS: Home medications are prior to admission, 1. Zanaflex 4 mg q.8 p.r.n. 2. Roxicodone 5 mg q.4 p.r.n. 3. Vitamin C zinc 1 tablet p.o. daily. 4. Chantix 1 mg p.o. b.i.d. 5. Carafate 1 g p.o. t.i.d. 6. Aldactone 25 mg q.a.m. 7. Senokot-S 1 tablet p.o. b.i.d. 8. Crestor 20 mg p.o. q.h.s. 9. Compazine 5 mg q.8 p.r.n. 10.Mirapex 0.125 mg p.o. q.h.s. 11.Protonix 40 mg p.o. b.i.d. 12.Nitrostat 0.4 sublingual p.r.n. 13.Xylocaine viscus. 14.Motrin p.r.n. 15.Neurontin 100 mg p.o. t.i.d. 16.Lexapro 20 mg p.o. daily. 17.Mycelex 10 mg mucous membrane 5 times. 18.Plavix 75 mg p.o. daily. 19.Tussionex 5 mL p.o. b.i.d. p.r.n. 20.Aspirin 81 mg q.h.s. 21.Ventolin 2.5 b.i.d. 22.Tylenol 650 q.6h p.r.n. ALLERGIES: TORADOL, NORAGESIC, TOLECTIN. FAMILY HISTORY: History of cancer, lung cancer, mesothelioma. SOCIAL HISTORY: Previous history of smoking. No history of current smoking or alcohol intake. REVIEW OF SYSTEMS: ENT: No diminished vision. No diminished hearing. CARDIOVASCULAR: As mentioned earlier. RESPIRATORY: As mentioned earlier. GI no nausea. no dysuria or hematuria. NERVOUS SYSTEM: No numbness or weakness. ALLERGY/IMMUNOLOGY: No asthma or hayfever. MUSCULOSKELETAL as mentioned earlier. HEMATOLOGY/ONCOLOGY: No history of anemia. mentioned earlier. CONSTITUTIONAL: As mentioned earlier. DERMATOLOGY: Negative. RHEUMATOLOGY: Negative. PSYCHIATRY: As mentioned earlier. PHYSICAL EXAMINATION: Alert and oriented x3. Pulse is 91, blood pressure 78/50, respiration 18, temperature normal, pulse ox 98% on 5 L. HEENT: Conjunctivae pale. Oral mucosa moist. Neck is no jugular venous distention. No carotid bruit. No lymph node enlargement. CARDIOVASCULAR system: S1, S2 muffled. RESPIRATION: Breath sounds diminished in the bases. A few scattered rhonchi and crackles. ABDOMEN: Soft, nontender. No mass palpable. Legs: No edema and no swelling. NERVOUS SYSTEM: Higher functions as mentioned. Moves all four limbs. No focal motor or sensory deficits. Lymphatics: No lymph nodes palpable in the neck, axillae or groin. SKIN: No joints and no active deforming arthropathy. LABS: Chest x-ray personally reviewed. WBC 10.8, hemoglobin 6.8. Lactic acid 4.1. ASSESSMENT: 1. Recurrent hemoptysis, possibly secondary to lung cancer. 2. Acute blood loss anemia entrance anemia receiving transfusion. 3. Hypotension possibly secondary to acute blood loss. 4. History of lung cancer, squamous cell carcinoma of the right lung, status post chemoradiation and stenting. 5. History of coronary artery disease. 6. History of deep vein thrombosis. 7. Hypertension. 8. Hyperlipidemia. 9. History of myocardial infarction. 10.History of degenerative joint disease.. 11.History of vascular disorder. 12.History of deep vein thrombosis. 13.History of back surgery/degenerative joint disease. 14.History of hysterectomy. 15.History of depression. 16.FULL CODE. RECOMMENDATIONS AND DISCUSSION: In this 63-year-old woman who presented with multiple complex medical issues, recommend to continue current medications, monitor hemoglobin closely. I have contacted [facility] already for possible transfer to ICU and close management and further evaluation including embolization. The prognosis is guarded. Further recommendations to follow. Closely monitor and Levophed drip for hypotension to stabilize her and further recommendations to follow. We will continue to monitor. Guarded prognosis. Further recommendations to follow. We will hold off the antihypertensive medications. MMODL / IJN: [id number] /
[2019-01-17 08:09] VITALS: BP 88/55; PULSE 95; RESP 16; TEMP 98
[2019-01-17] MEDS ORDERED: SPIRONOLACTONE 25 MG TAB PO SCH (09:00)
[2019-01-17] MEDS ORDERED: ESCITALOPRAM 20 MG TAB PO SCH (09:00)
== END 2019-01-16 19:50 | disposition short-term general hospital (02) | DRG 181 ==
LOC: EC 06:41 → 3NMEDONC 08:44 → 2SICU 08:44 → UNDOADMIN 08:44
PROVIDERS: ADMIT Hospitalist; ATTEND Hospitalist
PROC: 30233N1 Transfusion of Nonautologous Red Blood Cells into Peripheral Vein, Percutaneous Approach (ICD-10-PCS; principal; 2019-01-16)
DX: C34.31 Malignant neoplasm of lower lobe, right bronchus or lung (principal); D62 Acute posthemorrhagic anemia; R04.2 Hemoptysis; C34.2 Malignant neoplasm of middle lobe, bronchus or lung; E78.5 Hyperlipidemia, unspecified; E87.6 Hypokalemia; F32.9 Major depressive disorder, single episode, unspecified; I10 Essential (primary) hypertension; I25.2 Old myocardial infarction; Z87.891 Personal history of nicotine dependence; Z87.01 Personal history of pneumonia (recurrent); I25.10 Atherosclerotic heart disease of native coronary artery without angina pectoris; I73.9 Peripheral vascular disease, unspecified; Z79.02 Long term (current) use of antithrombotics/antiplatelets; Z79.82 Long term (current) use of aspirin; Z79.899 Other long term (current) drug therapy; Z80.1 Family history of malignant neoplasm of trachea, bronchus and lung; Z82.49 Family history of ischemic heart disease and other diseases of the circulatory system; Z86.718 Personal history of other venous thrombosis and embolism; Z90.710 Acquired absence of both cervix and uterus; Z92.21 Personal history of antineoplastic chemotherapy; Z92.3 Personal history of irradiation; M19.90 Unspecified osteoarthritis, unspecified site; I95.9 Hypotension, unspecified; Z95.828 Presence of other vascular implants and grafts; Z88.6 Allergy status to analgesic agent; Z88.5 Allergy status to narcotic agent; R91.8 Other nonspecific abnormal finding of lung field; Z96.89 Presence of other specified functional implants
CPT/HCPCS: 36415; 71045; 71046; 71275; 80053; 83605; 83735; 83880; 84484; 85025; 85379; 85610; 85730; 86850; 86900; 86901; 86920; 87040; 87077; 87186; 93005; 96360; 96361; 96365; 96366; 96367; 96375; 99285; 99291

== ENCOUNTER 2019-01-29 18:25 | Observation (INO) | payer MEDICARE ==
--- NOTE | 2019-01-29 19:12 | ED ---
Recheck HPI - General Chief Complaint: Recheck/Abnormal Lab/Rx Stated Complaint: Low potassium Time Seen by Provider: 01/29/19 18:53 Source: patient Mode of arrival: ambulatory Limitations: no limitations - History of Present Illness Initial Comments: patient is a 63-year-old female presenting to the emergency Department with complaints of low potassium. Patient is currently receiving treatment for lung cancer. Patient was recently discharged from [facility] last week and has been taking 10MeQ of potassium secondary to hypokalemia. Patient had a recent visit with visiting nurse yesterday who did a blood draw and patient was called today stating that her potassium was 2.7 that she needed to go to the ER. Patient denies any chest pain, shortness breath, dizziness, palpitations. Patient states she feels fine and did not want to come to the ER. Patient is currently on antibiotics for staph infection. Patient does have a PICC line. P luis has no other complaints at this time. Upon arrival to the ER, her vital signs are stable. - Related Data Home Medications Medication Instructions Recorded Confirmed Nitroglycerin Sl Tabs [Nitrostat] 0.4 mg PO Q5M PRN 01/28/18 01/29/19 Pramipexole [Mirapex] 0.125 mg PO HS 01/28/18 01/29/19 Rosuvastatin [Crestor] 20 mg PO HS 01/28/18 01/29/19 Spironolactone [Aldactone] 25 mg PO DAILY 01/28/18 01/29/19 Aspirin [Adult Low Dose Aspirin EC] 81 mg PO HS 05/22/18 01/29/19 Pantoprazole Sodium [Protonix] 40 mg PO BID 07/10/18 01/29/19 Acetaminophen [Tylenol] 650 mg PO Q6H PRN 11/04/18 01/29/19 Albuterol Nebulized [Ventolin 2.5 mg INHALATION RT-BID 11/04/18 01/29/19 Nebulized] Gabapentin [Neurontin] 100 mg PO TID 11/04/18 01/29/19 oxyCODONE HCL [Roxicodone] 5 mg PO QID PRN 11/04/18 01/29/19 tiZANidine HCL [Zanaflex] 4 mg PO Q8HR PRN 11/04/18 01/29/19 Prochlorperazine [Compazine] 5 mg PO Q8HR PRN 12/10/18 01/29/19 Lidocaine Viscous 2% [Xylocaine 15 ml PO Q4H PRN 12/24/18 01/29/19 Viscous] Sucralfate [Carafate] 1 gm PO TID PRN 12/31/18 01/29/19 CHLORPHEN-HYDROcod 8-10mg/5ml 5 ml PO Q12HR PRN 01/16/19 01/29/19 [Tussionex] Escitalopram [Lexapro] 20 mg PO DAILY 01/16/19 01/29/19 Magnesium Oxide 400 mg PO BID 01/29/19 01/29/19 Ondansetron HCl [Zofran] 4 - 8 mg PO Q4-6H PRN 01/29/19 01/29/19 Potassium Chloride ER [K-Dur 10] 10 meq PO DAILY 01/29/19 01/29/19 Trimethobenzamide HCl [Tigan] 300 mg PO TID PRN 01/29/19 01/29/19 Allergies Allergy/AdvReac Type Severity Reaction Status Date / Time ketorolac [From Toradol] Allergy Rash/Hives Verified 01/29/19 21:47 orphenadrine [From Norgesic] Allergy Rash/Hives Verified 01/29/19 21:47 tolmetin [From Tolectin] Allergy Rash/Hives Verified 01/29/19 21:47 Review of Systems ROS Statement: Those systems with pertinent positive or pertinent negative responses have been documented in the HPI. ROS Other: All systems not noted in ROS Statement are negative. Past Medical History Past Medical History: Coronary Artery Disease (CAD), Cancer, Deep Vein Thrombosis (DVT), Hyperlipidemia, Hypertension, Myocardial Infarction ([place]), Osteoarthritis (OA), Pneumonia, Vascular Disorder Additional Past Medical History / Comment(s): R mid lung cancer with chemo that ended 12/31/18 and radiation that ended 01/08/19, DVTs bilateral lower legs, bronchitis, chronic lower back pain/herniated discs, arthritis in multiple joints, PVD Last Myocardial Infarction Date:: 1995 History of Any Multi-Drug Resistant Organisms: None Reported Past Surgical History: Back Surgery, Breast Surgery, Heart Catheterization, Hysterectomy, Orthopedic Surgery Additional Past Surgical History / Comment(s): Bronchoscopies/brushings and biopsy, R lung stent Jun, 2017 at [facility], thoracotomy September, at [facility], benign mass removed from L adrenal gland, L breast benign biopsy, R rotator cuff repair, thyoid surgery for goiter, R lower leg stents x2. Past Anesthesia/Blood Transfusion Reactions: No Reported Reaction Past Psychological History: Depression Smoking Status: Former smoker Past Alcohol Use History: None Reported Past Drug Use History: None Reported - Past Family History Mother Family Medical History: Cancer Additional Family Medical History / Comment(s): lung cancer. mesothelioma Father Family Medical History: Coronary Artery Disease (CAD) General Exam - General Exam Comments Initial Comments: GENERAL: Well-appearing, well-nourished and in no acute distress. HEAD: Atraumatic, normocephalic. EYES: Pupils equal round and reactive to light, extraocular movements intact, sclera anicteric, conjunctiva are normal. ENT: TMs normal, nares patent, oropharynx clear without exudates. Moist mucous membranes. NECK: Normal range of motion, supple without lymphadenopathy or JVD. LUNGS: Breath sounds clear to auscultation bilaterally and equal. No wheezes rales or rhonchi. HEART: Regular rate and rhythm without murmurs, rubs or gallops. ABDOMEN: Soft, nontender, normoactive bowel sounds. No guarding, no rebound. No masses appreciated. : Deferred EXTREMITIES: Normal range of motion, no pitting or edema. No clubbing or cyanosis. NEUROLOGICAL: Cranial nerves II through XII grossly intact. Normal speech, normal gait. PSYCH: Normal mood, normal affect. SKIN: Warm, Dry, normal turgor, no rashes or lesions noted. Limitations: no limitations Course Vital Signs 01/29/19 01/29/19 01/29/19 18:29 21:34 23:05 Temperature 98.1 F Pulse Rate 112 H 94 91 Respiratory 19 18 18 Rate Blood Pressure 108/74 101/81 97/73 O2 Sat by Pulse 98 98 94 L Oximetry - Reevaluation(s) Reevaluation #1: 01/29/19 21:[address] Singh, and he would like a 40 K-dur and then potassium rechecked and 30-45 minutes. If levels remain same, patient will be admitted for IV potassium. If levels increase patient can be discharged home. Reevaluation #2: 01/29/19 23:19 potassium is 2.6. I spoke with Dr. Singh, who stated to give 40 IV, admit, and recheck potassium in the morning. Medical Decision Making - Medical Decision Making patient is a 63-year-old female presenting with hypokalemia. Patient is currently receiving treatment for lung cancer. Lab work shows potassium of 2.5. EKG shows no acute findings. Rest of lab work shows no acute abnormalities. Dr. Singh was consulted and recommended giving patient 40 meq of K-dur and recheck potassium. Potassium was 2.[address] Singh was consulted again and will admit the patient. Patient was then given 40 meq IV and labs will be rechecked in the a.m. Patient is agreeable with this plan of care. Case discussed with Dr. Dominguez. - Lab Data Result diagrams: 01/29/19 19:55 01/29/19 22:30 Lab Results 01/29/19 01/29/19 01/29/19 Range/Units 19:55 19:55 19:55 WBC 4.6 (3.8-10.6) k/uL RBC 3.59 L (3.80-5.40) m/uL Hgb 10.8 L D (11.4-16.0) gm/dL Hct 31.9 L (34.0-46.0) % MCV 88.8 (80.0-100.0) fL MCH 30.0 (25.0-35.0) pg MCHC 33.8 (31.0-37.0) g/dL RDW 20.6 H (11.5-15.5) % Plt Count 298 (150-450) k/uL Neutrophils % 81 % Lymphocytes % 8 % Monocytes % 7 % Eosinophils % 2 % Basophils % 1 % Neutrophils # 3.7 (1.3-7.7) k/uL Lymphocytes # 0.4 L (1.0-4.8) k/uL Monocytes # 0.3 (0-1.0) k/uL Eosinophils # 0.1 (0-0.7) k/uL Basophils # 0.0 (0-0.2) k/uL Hypochromasia Slight Poikilocytosis Slight Anisocytosis Moderate PT 11.0 (9.0-12.0) sec INR 1.0 (<1.2) APTT 28.8 (22.0-30.0) sec Sodium 133 L (137-145) mmol/L Potassium 2.5 L* (3.5-5.1) mmol/L Chloride 99 (98-107) mmol/L Carbon Dioxide 31 H (22-30) mmol/L Anion Gap 3 mmol/L BUN 11 (7-17) mg/dL Creatinine 0.47 L (0.52-1.04) mg/dL Est GFR (CKD-EPI)AfAm >90 (>60 ml/min/1.73 sqM) Est GFR (CKD-EPI)NonAf >90 (>60 ml/min/1.73 sqM) Glucose 96 (74-99) mg/dL Calcium 7.7 L (8.4-10.2) mg/dL Total Bilirubin 0.9 (0.2-1.3) mg/dL AST 21 (14-36) U/L ALT 8 (4-34) U/L Alkaline Phosphatase 73 (38-126) U/L Troponin I (0.000-0.034) ng/mL Total Protein 5.2 L (6.3-8.2) g/dL Albumin 2.5 L (3.5-5.0) g/dL 01/29/19 01/29/19 Range/Units 19:55 22:30 WBC (3.8-10.6) k/uL RBC (3.80-5.40) m/uL Hgb (11.4-16.0) gm/dL Hct (34.0-46.0) % MCV (80.0-100.0) fL MCH (25.0-35.0) pg MCHC (31.0-37.0) g/dL RDW (11.5-15.5) % Plt Count (150-450) k/uL Neutrophils % % Lymphocytes % % Monocytes % % Eosinophils % % Basophils % % Neutrophils # (1.3-7.7) k/uL Lymphocytes # (1.0-4.8) k/uL Monocytes # (0-1.0) k/uL Eosinophils # (0-0.7) k/uL Basophils # (0-0.2) k/uL Hypochromasia Poikilocytosis Anisocytosis PT (9.0-12.0) sec INR (<1.2) APTT (22.0-30.0) sec Sodium (137-145) mmol/L Potassium 2.6 L* (3.5-5.1) mmol/L Chloride (98-107) mmol/L Carbon Dioxide (22-30) mmol/L Anion Gap mmol/L BUN (7-17) mg/dL Creatinine (0.52-1.04) mg/dL Est GFR (CKD-EPI)AfAm (>60 ml/min/1.73 sqM) Est GFR (CKD-EPI)NonAf (>60 ml/min/1.73 sqM) Glucose (74-99) mg/dL Calcium (8.4-10.2) mg/dL Total Bilirubin (0.2-1.3) mg/dL AST (14-36) U/L ALT (4-34) U/L Alkaline Phosphatase (38-126) U/L Troponin I <0.012 (0.000-0.034) ng/mL Total Protein (6.3-8.2) g/dL Albumin (3.5-5.0) g/dL - EKG Data EKG Comments: ventricular rate 91, [place] interval 128, QTc 509. Normal sinus rhythm. Incomplete right bundle branch block, prolonged QT. No acute ST segment changes. compared to previous EKG on 01/16/2019. Disposition Clinical Impression: Hypokalemia Disposition: ADMITTED IP TO THIS [facility] Condition: Good Decision Date: 01/29/19 Decision Time: 23:20
[2019-01-29 20:10] LABS: Anisocytosis Moderate; Basophils % (A) 1 %; Eosinophils # (A) 0.1 k/uL (0-0.7); Eosinophils % (A) 2 %; HCT 31.9 % (34.0-46.0); Hypochromasia Slight; Lymphocytes # (A) 0.4 k/uL (1.0-4.8); Lymphocytes % (A) 8 %; MCHC 33.8 g/dL (31.0-37.0); MCV 88.8 fL (80.0-100.0); Mean Platelet Volume 7.9; Monocytes # (A) 0.3 k/uL (0-1.0); Monocytes % (A) 7 %; Neutrophils # (A) 3.7 k/uL (1.3-7.7); Neutrophils % (A) 81 %; Platelet Count 298 k/uL (150-450); Poikilocytosis Slight; RBC 3.59 m/uL (3.80-5.40); RDW 20.6 % (11.5-15.5); WBC 4.6 k/uL (3.8-10.6)
[2019-01-29 20:12] LABS: HGB 10.8 gm/dL (11.4-16.0)
[2019-01-29 20:19] LABS: ALT 8 U/L (4-34); AST 21 U/L (14-36); African American GFR (CKD) >90 (>60 ml/min/1.73 sqM); Albumin 2.5 g/dL (3.5-5.0); Alkaline Phosphatase 73 U/L (38-126); Anion Gap 3 mmol/L; Blood Urea Nitrogen 11 mg/dL (7-17); Calcium 7.7 mg/dL (8.4-10.2); Carbon Dioxide 31 mmol/L (22-30); Chloride 99 mmol/L (98-107); Glucose 96 mg/dL (74-99); Non-African American GFR(CKD) >90 (>60 ml/min/1.73 sqM); Sodium 133 mmol/L (137-145); Total Bilirubin 0.9 mg/dL (0.2-1.3); Total Protein 5.2 g/dL (6.3-8.2)
[2019-01-29 20:23] LABS: Partial Thromboplastin Time 28.8 sec (22.0-30.0)
[2019-01-29 20:40] LABS: Potassium 2.5 mmol/L (3.5-5.1)
[2019-01-29] MEDS ORDERED: NALOXONE 0.4 MG/ML 1 ML VIAL IV PRN (21:08)
[2019-01-29] MEDS ORDERED: ONDANSETRON 4 MG/2 ML VIAL IVP PRN (21:08)
[2019-01-29] MEDS ORDERED: ACETAMINOPHEN TAB 325 MG TAB PO PRN (21:08)
[2019-01-29] MEDS ORDERED: POTASSIUM CHLORIDE ER 20 MEQ TAB.ER PO STA (21:10)
[2019-01-29 21:35] VITALS: RESP 18
[2019-01-29] MEDS ORDERED: POTASSIUM CHLORIDE 10 MEQ in WATER FOR INJECTION 1 100ML.BAG IVPB SCH (22:00)
[2019-01-29] MEDS: POTASSIUM CHLORIDE 10 MEQ in WATER FOR INJECTION 1 100ML.BAG IVPB SCH (23:43)
[2019-01-30] MEDS: POTASSIUM CHLORIDE 10 MEQ in WATER FOR INJECTION 1 100ML.BAG IVPB SCH ×3 (01:00→03:12)
[2019-01-30 06:25] LABS: ALT 7 U/L (4-34); AST 18 U/L (14-36); African American GFR (CKD) >90 (>60 ml/min/1.73 sqM); Albumin 2.2 g/dL (3.5-5.0); Alkaline Phosphatase 69 U/L (38-126); Anion Gap 2 mmol/L; Blood Urea Nitrogen 9 mg/dL (7-17); Calcium 7.6 mg/dL (8.4-10.2); Carbon Dioxide 32 mmol/L (22-30); Chloride 101 mmol/L (98-107); Glucose 108 mg/dL (74-99); Magnesium 1.8 mg/dL (1.6-2.3); Non-African American GFR(CKD) >90 (>60 ml/min/1.73 sqM); Potassium 3.4 mmol/L (3.5-5.1); Sodium 135 mmol/L (137-145); Total Bilirubin 0.8 mg/dL (0.2-1.3); Total Protein 4.6 g/dL (6.3-8.2)
[2019-01-30 08:13] VITALS: BP 113/76; PULSE 88; TEMP 98.2
[2019-01-30] MEDS ORDERED: ACETAMINOPHEN TAB 325 MG TAB PO PRN (09:05)
[2019-01-30] MEDS ORDERED: ONDANSETRON 4 MG TAB PO PRN (09:05)
[2019-01-30] MEDS ORDERED: NON FORMULARY DRUG (Chlorphen-Hydrocod 8-10mg/5ml 5 ML) PO PRN (09:05)
[2019-01-30] MEDS ORDERED: LIDOCAINE VISCOUS 2% 15 ML CUP MUCOUS MEM PRN (09:05)
[2019-01-30] MEDS ORDERED: SUCRALFATE 1 GM TAB PO PRN (09:06)
[2019-01-30] MEDS ORDERED: tiZANidine 4 MG TAB PO PRN (09:06)
[2019-01-30] MEDS ORDERED: PROCHLORPERAZINE 5 MG TAB PO PRN (09:06)
[2019-01-30] MEDS ORDERED: TRIMETHOBENZAMIDE 300 MG CAP PO PRN (09:06)
[2019-01-30] MEDS ORDERED: MAGNESIUM OXIDE 400 MG TAB PO SCH (09:30)
[2019-01-30] MEDS ORDERED: ESCITALOPRAM 20 MG TAB PO SCH (09:30)
[2019-01-30] MEDS ORDERED: SPIRONOLACTONE 25 MG TAB PO SCH (09:30)
[2019-01-30] MEDS ORDERED: POTASSIUM CHLORIDE ER 10 MEQ TAB.ER.PRT PO SCH (09:30)
[2019-01-30] MEDS ORDERED: GABAPENTIN 100 MG CAP PO SCH (09:30)
[2019-01-30] MEDS ORDERED: PANTOPRAZOLE 40 MG TABLET PO SCH (09:30)
[2019-01-30] MEDS ORDERED: NAFCILLIN 2 GM in DEXTROSE 5% IN WATER 100 ML IVPB SCH ×2 (10:00)
[2019-01-30] MEDS ORDERED: POTASSIUM CHLORIDE ER 20 MEQ TAB.ER PO STA (11:09)
--- NOTE | 2019-01-30 19:25 | P.HPIM ---
History of Present Illness H&P Date: 01/30/19 Chief Complaint: low potassium History of presenting complaint: This is a very pleasant 63-year-old patient follows Dr. Salinas and her oncologist Dr. Goetz. Chronic stable medical conditions include atrial fibrillation, coronary artery disease, DVT, hypertension, hyperlipidemia, osteoarthritis. Patient was diagnosed lung cancer. Has finished her chemotherapy in December 2018. She also followed with Dr. Vee from radiation oncology. Recently she is diagnosed with Staphylococcus infection of the blood and she'll be getting IV nafcillin. Patient had a baseline has about 4-5 bowel movements a day. C. diff has been ruled out. Patient had a potassium checked and came back to the low. She was sent to the ER to get it replaced. Repeat potassium in the ER was 2.5. Patient hypertensive renal. No fever no chills. Propofol.. Patient was taking anticoagulation the past but then she developed hemoptysis and anticoagulation was discontinued. Review of systems: GEN.: A bit tired EYES: None HEENT: None NECK: None RESPIRATORY: None CARDIOVASCULAR: None GASTROINTESTINAL: As above GENITOURINARY: None MUSCULOSKELETAL: [Some joint pains LYMPHATICS: None HEMATOLOGICAL: None PSYCHIATRY: None NEUROLOGICAL: None Social history: . Does smoke in the past. Patient smoked for about 40 years stopped in 2018. No alcohol. Physical examination: VITAL SIGNS: 98.2, 88, 18, 11 3/76, 93% room air GENERAL: BMI 24.2, laying in bed awake. EYES: Pupils equal. Conjunctiva normal. HEENT: External appearance of nose and ears normal, oral cavity grossly normal. NECK: JVD not raised; masses not palpable. HEART: First and second heart sounds are normal; no edema. LUNGS: Respiratory rate normal; decreased breath sounds. ABDOMEN: Soft, nontender, liver spleen not palpable, no masses palpable. PSYCH: Alert and oriented x3; mood and affect normal. NEUROLOGICAL: Cranial nerves grossly intact; no facial asymmetry, power and sensation grossly intact. LYMPHATICS: No lymph nodes palpable in the axilla and neck MUSCULOSKELETAL: Evidence of OA especially in the hands INVESTIGATIONS, reviewed in the clinical context: White count 4.6 hemoglobin 10.8 platelets 298 potassium 2.5 creatinine 0.47 Repeat this morning was 3.4 Assessment: -Acute severe hypokalemia from diarrhea secondary to antibiotics -Antibiotic associated diarrhea, C. diff had been ruled out -Lung cancer status post chemotherapy patient post possibly also received radiation treatment. She due for a PET scan next month -Primary osteoarthritis -Essential hypertension -Hyperlipidemia -Chronic DVT/PE patient. For anticoagulation because of hemoptysis Plan: Patient's potassium was aggressively replaced. Other home medications resumed. Recheck potassium was done. Care was discussed with the patient and the daughter the bedside. Home antibiotics to continue. Past Medical History Past Medical History: Atrial Fibrillation, Coronary Artery Disease (CAD), Cancer, Deep Vein Thrombosis (DVT), Hyperlipidemia, Hypertension, Myocardial Infarction ([place]), Osteoarthritis (OA), Pneumonia, Vascular Disorder Additional Past Medical History / Comment(s): R mid lung cancer with chemo that ended 12/31/18 and radiation that ended 01/03/19, DVTs bilateral lower legs, bronchitis, chronic lower back pain/herniated discs, arthritis in multiple joints, PVD, thoracotomy sep 2018 Last Myocardial Infarction Date:: 1995 History of Any Multi-Drug Resistant Organisms: None Reported Past Surgical History: Back Surgery, Breast Surgery, Heart Catheterization, Hysterectomy, Orthopedic Surgery Additional Past Surgical History / Comment(s): Bronchoscopies/brushings and biopsy, R lung stent Jun, 2017 at [facility], thoracotomy September, at [facility], benign mass removed from L adrenal gland, L breast benign biopsy, R rotator cuff repair X2, thyoid surgery for goiter, R lower leg stents x2. Right lung stent Past Anesthesia/Blood Transfusion Reactions: No Reported Reaction Smoking Status: Former smoker - Past Family History Mother Family Medical History: Cancer Additional Family Medical History / Comment(s): lung cancer. mesothelioma Father Family Medical History: Coronary Artery Disease (CAD) Medications and Allergies Home Medications Medication Instructions Recorded Confirmed Type Nitroglycerin Sl Tabs [Nitrostat] 0.4 mg PO Q5M PRN 01/28/18 01/30/19 History Pramipexole [Mirapex] 0.125 mg PO HS 01/28/18 01/30/19 History Rosuvastatin [Crestor] 20 mg PO HS 01/28/18 01/30/19 History Spironolactone [Aldactone] 25 mg PO DAILY 01/28/18 01/30/19 History Aspirin [Adult Low Dose Aspirin EC] 81 mg PO HS 05/22/18 01/30/19 History Pantoprazole Sodium [Protonix] 40 mg PO BID 07/10/18 01/30/19 History Acetaminophen [Tylenol] 650 mg PO Q6H PRN 11/04/18 01/30/19 History Albuterol Nebulized [Ventolin 2.5 mg INHALATION RT-BID 11/04/18 01/30/19 History Nebulized] Gabapentin [Neurontin] 100 mg PO TID 11/04/18 01/30/19 History oxyCODONE HCL [Roxicodone] 5 mg PO QID PRN 11/04/18 01/30/19 History tiZANidine HCL [Zanaflex] 4 mg PO Q8HR PRN 11/04/18 01/30/19 History Prochlorperazine [Compazine] 5 mg PO Q8HR PRN 12/10/18 01/30/19 History Lidocaine Viscous 2% [Xylocaine 15 ml PO Q4H PRN 12/24/18 01/30/19 History Viscous] Sucralfate [Carafate] 1 gm PO TID PRN 12/31/18 01/30/19 History CHLORPHEN-HYDROcod 8-10mg/5ml 5 ml PO Q12HR PRN 01/16/19 01/30/19 History [Tussionex] Escitalopram [Lexapro] 20 mg PO DAILY 01/16/19 01/30/19 History Magnesium Oxide 400 mg PO BID 01/29/19 01/30/19 History Ondansetron HCl [Zofran] 4 - 8 mg PO Q4-6H PRN 01/29/19 01/30/19 History Trimethobenzamide HCl [Tigan] 300 mg PO TID PRN 01/29/19 01/30/19 History Nafcillin [Nafcil] 2 gm IVPB Q4H vial 01/30/19 Rx Potassium Chloride ER [K-Dur 20] 20 meq PO BID #60 tab 01/30/19 Rx Allergies Allergy/AdvReac Type Severity Reaction Status Date / Time ketorolac [From Toradol] Allergy Rash/Hives Verified 01/30/19 01:03 orphenadrine [From Norgesic] Allergy Rash/Hives Verified 01/30/19 01:03 tolmetin [From Tolectin] Allergy Rash/Hives Verified 01/30/19 01:03 Physical Exam Vitals: Vital Signs Temp Pulse Pulse Resp BP BP Pulse Ox 01/30/19 08:00 88 18 01/30/19 07:40 98.2 F 88 18 113/76 93 L 01/30/19 03:34 18 01/30/19 01:00 98.0 F 98 18 110/76 92 L 01/30/19 00:24 94 18 93/71 97 01/30/19 00:00 18 01/29/19 23:05 91 18 97/73 94 L 01/29/19 21:34 94 18 101/81 98 01/29/19 18:29 98.1 F 112 H 19 108/74 98 Intake and Output 01/29/19 01/30/19 01/30/19 22:59 06:59 14:59 Intake Total 436 Balance 436 Intake: Oral 236 Other 200 Other: Voiding Method Toilet # Voids 1 Weight 64.002 kg 64.002 kg Results CBC & Chem 7: 01/29/19 19:55 01/30/19 05:55 Labs: Abnormal Lab Results - Last 24 Hours (Table) 01/29/19 01/29/19 01/29/19 Range/Units 19:55 19:55 22:30 RBC 3.59 L (3.80-5.40) m/uL Hgb 10.8 L D (11.4-16.0) gm/dL Hct 31.9 L (34.0-46.0) % RDW 20.6 H (11.5-15.5) % Lymphocytes # 0.4 L (1.0-4.8) k/uL Sodium 133 L (137-145) mmol/L Potassium 2.5 L* 2.6 L* (3.5-5.1) mmol/L Carbon Dioxide 31 H (22-30) mmol/L Creatinine 0.47 L (0.52-1.04) mg/dL Glucose (74-99) mg/dL Calcium 7.7 L (8.4-10.2) mg/dL Total Protein 5.2 L (6.3-8.2) g/dL Albumin 2.5 L (3.5-5.0) g/dL 01/30/19 Range/Units 05:55 RBC (3.80-5.40) m/uL Hgb (11.4-16.0) gm/dL Hct (34.0-46.0) % RDW (11.5-15.5) % Lymphocytes # (1.0-4.8) k/uL Sodium 135 L (137-145) mmol/L Potassium 3.4 L (3.5-5.1) mmol/L Carbon Dioxide 32 H (22-30) mmol/L Creatinine (0.52-1.04) mg/dL Glucose 108 H (74-99) mg/dL Calcium 7.6 L (8.4-10.2) mg/dL Total Protein 4.6 L (6.3-8.2) g/dL Albumin 2.2 L (3.5-5.0) g/dL Thrombosis Risk Factor Assmnt - Choose All That Apply Each Risk Factor Represents 2 Points: Age 61-74 years Each Risk Factor Represents 3 Points: History of DVT/PE Thrombosis Risk Factor Assessment Total Risk Factor Score: 5 Thrombosis Risk Factor Assessment Level: High Risk
--- NOTE | 2019-01-30 19:28 | P.DS ---
Providers Date of admission: 01/29/19 23:13 Expected date of discharge: 01/30/19 Attending physician: Daniel Singh [facility] Course: Chief Complaint: low potassium History of presenting complaint: This is a very pleasant 63-year-old patient follows Dr. Salinas and her oncologist Dr. Goetz. Chronic stable medical conditions include atrial fibrillation, coronary artery disease, DVT, hypertension, hyperlipidemia, osteoarthritis. Patient was diagnosed lung cancer. Has finished her chemotherapy in December 2018. She also followed with Dr. Vee from radiation oncology. Recently she is diagnosed with Staphylococcus infection of the blood and she'll be getting IV nafcillin. Patient had a baseline has about 4-5 bowel movements a day. C. diff has been ruled out. Patient had a potassium checked and came back to the low. She was sent to the ER to get it replaced. Repeat potassium in the ER was 2.5. Patient hypertensive renal. No fever no chills. Propofol.. Patient was taking anticoagulation the past but then she developed hemoptysis and anticoagulation was discontinued.potassium was aggressively replaced. Care was discussed with the patient of Dr. flores. patient told to take potassium supplement of 40 because a day states she's having anywhere from 3-5 bowel movements a day. Repeat labs on Sunday. Physical examination: VITAL SIGNS: 98.2, 88, 18, 11 3/76, para 3% room air GENERAL: BMI 24.2, laying in bed comfortable EYES: Pupils equal. Conjunctiva normal. HEENT: External appearance of nose and ears normal, oral cavity grossly normal. NECK: JVD not raised; masses not palpable. HEART: First and second heart sounds are normal; no edema. LUNGS: Respiratory rate normal; decreased breath sounds. ABDOMEN: Soft, nontender, liver spleen not palpable, no masses palpable. PSYCH: Alert and oriented x3; mood and affect normal. MUSCULOSKELETAL: Evidence of OA especially in the hands INVESTIGATIONS, reviewed in the clinical context: White count 4.6 hemoglobin 10.8 platelets 298 potassium 2.5 creatinine 0.47 Repeat this morning was 3.4 Assessment: -Acute severe hypokalemia from diarrhea secondary to antibiotics, replaced -Antibiotic associated diarrhea, C. diff had been ruled out -Lung cancer status post chemotherapy patient post possibly also received radiation treatment. She due for a PET scan next month -Primary osteoarthritis -Essential hypertension -Hyperlipidemia -Chronic DVT/PE patient. For anticoagulation because of hemoptysis disposition: Home Patient Condition at Discharge: Stable Plan - Discharge Summary New Discharge Prescriptions: New Potassium Chloride ER [K-Dur 20] 20 meq PO BID #60 tab Nafcillin [Nafcil] 2 gm IVPB Q4H vial Continue Pramipexole [Mirapex] 0.125 mg PO HS Nitroglycerin Sl Tabs [Nitrostat] 0.4 mg PO Q5M PRN PRN Reason: Chest Pain Rosuvastatin [Crestor] 20 mg PO HS Spironolactone [Aldactone] 25 mg PO DAILY Aspirin [Adult Low Dose Aspirin EC] 81 mg PO HS Pantoprazole Sodium [Protonix] 40 mg PO BID tiZANidine HCL [Zanaflex] 4 mg PO Q8HR PRN PRN Reason: Muscle Spasm oxyCODONE HCL [Roxicodone] 5 mg PO QID PRN PRN Reason: Pain Gabapentin [Neurontin] 100 mg PO TID Albuterol Nebulized [Ventolin Nebulized] 2.5 mg INHALATION RT-BID Acetaminophen [Tylenol] 650 mg PO Q6H PRN PRN Reason: Pain Prochlorperazine [Compazine] 5 mg PO Q8HR PRN PRN Reason: Nausea Lidocaine Viscous 2% [Xylocaine Viscous] 15 ml PO Q4H PRN PRN Reason: MOUTH/THROAT PAIN Sucralfate [Carafate] 1 gm PO TID PRN PRN Reason: Heartburn CHLORPHEN-HYDROcod 8-10mg/5ml [Tussionex] 5 ml PO Q12HR PRN PRN Reason: Cough Escitalopram [Lexapro] 20 mg PO DAILY Trimethobenzamide HCl [Tigan] 300 mg PO TID PRN PRN Reason: Nausea Magnesium Oxide 400 mg PO BID Ondansetron HCl [Zofran] 4 - 8 mg PO Q4-6H PRN PRN Reason: Nausea Discontinued Potassium Chloride ER [K-Dur 10] 10 meq PO DAILY Discharge Medication List Nitroglycerin Sl Tabs [Nitrostat] 0.4 mg PO Q5M PRN 01/28/18 [History] Pramipexole [Mirapex] 0.125 mg PO HS 01/28/18 [History] Rosuvastatin [Crestor] 20 mg PO HS 01/28/18 [History] Spironolactone [Aldactone] 25 mg PO DAILY 01/28/18 [History] Aspirin [Adult Low Dose Aspirin EC] 81 mg PO HS 05/22/18 [History] Pantoprazole Sodium [Protonix] 40 mg PO BID 07/10/18 [History] Acetaminophen [Tylenol] 650 mg PO Q6H PRN 11/04/18 [History] Albuterol Nebulized [Ventolin Nebulized] 2.5 mg INHALATION RT-BID 11/04/18 [History] Gabapentin [Neurontin] 100 mg PO TID 11/04/18 [History] oxyCODONE HCL [Roxicodone] 5 mg PO QID PRN 11/04/18 [History] tiZANidine HCL [Zanaflex] 4 mg PO Q8HR PRN 11/04/18 [History] Prochlorperazine [Compazine] 5 mg PO Q8HR PRN 12/10/18 [History] Lidocaine Viscous 2% [Xylocaine Viscous] 15 ml PO Q4H PRN 12/24/18 [History] Sucralfate [Carafate] 1 gm PO TID PRN 12/31/18 [History] CHLORPHEN-HYDROcod 8-10mg/5ml [Tussionex] 5 ml PO Q12HR PRN 01/16/19 [History] Escitalopram [Lexapro] 20 mg PO DAILY 01/16/19 [History] Magnesium Oxide 400 mg PO BID 01/29/19 [History] Ondansetron HCl [Zofran] 4 - 8 mg PO Q4-6H PRN 01/29/19 [History] Trimethobenzamide HCl [Tigan] 300 mg PO TID PRN 01/29/19 [History] Nafcillin [Nafcil] 2 gm IVPB Q4H vial 01/30/19 [Rx] Potassium Chloride ER [K-Dur 20] 20 meq PO BID #60 tab 01/30/19 [Rx] Follow up Appointment(s)/Referral(s): Pk Castano DO [Primary Care Provider] - 1-2 days Ambulatory/Diagnostic Orders: Basic Metabolic Panel [LAB.AMB] Time Frame: 02/03/19, Location: None Selected Activity/Diet/Wound Care/Special Instructions: Take potassium 40meq/day until having more than 3 bowel movements per day. Discharge Disposition: HOME SELF-CARE
[2019-01-30] MEDS ORDERED: ALBUTEROL NEBULIZED 2.5 MG/3 ML INHALATION SCH (20:00)
[2019-01-30] MEDS ORDERED: ASPIRIN 81 MG PO SCH (21:00)
[2019-01-30] MEDS ORDERED: PRAMIPEXOLE 0.125 MG TAB PO SCH (21:00)
[2019-01-30] MEDS ORDERED: ATORVASTATIN 40 MG TAB PO SCH (21:00)
== END 2019-01-30 13:32 | disposition home or self-care (01) ==
LOC: EC 18:25 → 1SOBS 23:13
PROVIDERS: ADMIT Hospitalist; ATTEND Hospitalist
DX: E87.6 Hypokalemia (principal); K52.1 Toxic gastroenteritis and colitis; T36.95XA Adverse effect of unspecified systemic antibiotic, initial encounter; E78.5 Hyperlipidemia, unspecified; I10 Essential (primary) hypertension; I25.10 Atherosclerotic heart disease of native coronary artery without angina pectoris; I25.2 Old myocardial infarction; I48.91 Unspecified atrial fibrillation; Z92.3 Personal history of irradiation; Z92.21 Personal history of antineoplastic chemotherapy; M19.91 Primary osteoarthritis, unspecified site; Z79.82 Long term (current) use of aspirin; Z79.899 Other long term (current) drug therapy; Z80.1 Family history of malignant neoplasm of trachea, bronchus and lung; Z82.49 Family history of ischemic heart disease and other diseases of the circulatory system; Z85.118 Personal history of other malignant neoplasm of bronchus and lung; Z87.891 Personal history of nicotine dependence; Z90.710 Acquired absence of both cervix and uterus; B95.8 Unspecified staphylococcus as the cause of diseases classified elsewhere; I73.9 Peripheral vascular disease, unspecified; Z88.8 Allergy status to other drugs, medicaments and biological substances
CPT/HCPCS: 96366; 96367; 96365; 99285; 36415; 93005; 80053 ×2; 83735; 84132; 84484; 85025; 85610; 85730; G0378; J3480 ×2

== ENCOUNTER 2019-02-24 08:47 | Day surgery (SDC) | payer MEDICARE ==
[2019-02-24 09:18] VITALS: BP 108/69; PULSE 91; RESP 16; TEMP 98
[2019-02-24] MEDS ORDERED: ALPRAZolam 0.5 MG TAB PO STA (09:34)
--- NOTE | 2019-02-24 10:45 | US ---
Discontinued biopsy history: Palpable mass, history lung cancer Ultrasound performed at the site of patient's palpable mass. There is hypoechoic focus with increased through transmission and internal septations consistent with seroma noted sided patient's clinical a bnormality of the posterior right back. No discrete mass is identified. Following discussion with the patient patient has elected to defer biopsy at this time. IMPRESSION: Discontinued biopsy. Findings may represent sequela from patient's surgery at this site.
== END 2019-02-24 10:38 | disposition home or self-care (01) ==
LOC: RADPROMAIN 08:47
PROVIDERS: ATTEND Internal Medicine Hematology & Oncology
DX: R91.8 Other nonspecific abnormal finding of lung field (principal); C34.2 Malignant neoplasm of middle lobe, bronchus or lung; I25.10 Atherosclerotic heart disease of native coronary artery without angina pectoris; I25.2 Old myocardial infarction; I10 Essential (primary) hypertension; Z53.8 Procedure and treatment not carried out for other reasons; Z79.82 Long term (current) use of aspirin; Z79.899 Other long term (current) drug therapy; Z92.3 Personal history of irradiation; Z92.21 Personal history of antineoplastic chemotherapy; Z79.02 Long term (current) use of antithrombotics/antiplatelets; F32.9 Major depressive disorder, single episode, unspecified; Z88.6 Allergy status to analgesic agent; Z90.710 Acquired absence of both cervix and uterus; Z98.890 Other specified postprocedural states; Z86.19 Personal history of other infectious and parasitic diseases; Z87.891 Personal history of nicotine dependence; M51.36 Other intervertebral disc degeneration, lumbar region
CPT/HCPCS: 76536

== ENCOUNTER → 2019-03-04 | Outpatient (CLI) | payer MEDICARE ==
[2019-03-04 10:48] LABS: African American GFR (CKD) >90 (>60 ml/min/1.73 sqM); Blood Urea Nitrogen 14 mg/dL (7-17); Non-African American GFR(CKD) >90 (>60 ml/min/1.73 sqM)
--- NOTE | 2019-03-04 11:31 | CT ---
EXAMINATION TYPE: CT chest w con DATE OF EXAM: 03/04/2019 COMPARISON: 11/13/2018, 01/15/2019 HISTORY: Follow up for lung ca post chemo/radiation. CT DLP: 182.2 mGycm Automated exposure control for dose reduction was used. CONTRAST: CT scan of the chest is performed with IV Contrast, patient injected with 100 mL of Isovue 300. FINDINGS: LUNGS: Metallic stent in the right middle lobe bronchus is redemonstrated and remains patent. There i s surrounding masslike consolidation again seen not significantly changed from prior. There is anter ior inferior consolidation redemonstrated. There are new areas of nodular consolidation or nodules j ust superior to this involving the anterior-inferior aspect right upper lobe appear stable. For refer ence is 1.1 x 1.0 cm and just inferior to this irregular masslike lesion 2.2 x 1.1 cm . No pleural ef fusion is evident. Stable suspicious pleural lesion with destruction of portions of the right posteri or lateral sixth rib. There appears to be a new subpleural nodule in the right upper lobe axial image 12 measuring 9 mm. Interlobular septal thickening suggestive of chronic interstitial lung disease is noted. Hyperinflation suggests COPD. MEDIASTINUM: There is no pathologic adenopathy in the subcarinal region on today's exam.. Stable prom inent but subcentimeter right pericarinal lymph node axial image 20. No cardiomegaly or pericardial e ffusion is seen. Mild to moderate calcified plaque of the aorta. Atherosclerotic change of aorta. Car diomegaly noted. OTHER: Tiny hypodensity involving the dome of the liver too small characterize but stable. Additiona l hypodensity near the gallbladder fossa measuring 5 mm stable surgical clips in the left periaortic region noted. There is a abdominal aortic aneurysm partially included on exam measuring 3.5 cm and si milar in appearance to the prior exam. Hypertrophic and degenerative change of the spine. IMPRESSION: 1. There is a new 9 mm subpleural nodule right upper lobe relative to the prior exam. 2. Areas of consolidation and nodularity in the right upper lobe including the destructive subpleural region are similar appearance to prior exam with no significant interval change. 3. Right hilar lymphadenopathy is stable. No definite pathologic subcarinal adenopathy on today's exa m. As noted above additional scattered areas of shotty adenopathy are noted 4. Limited views of the upper abdomen demonstrate a 3.6 cm abdominal aortic aneurysm
== END ==
LOC: RADCTMAIN 10:13
PROVIDERS: ATTEND Internal Medicine Hematology & Oncology
DX: C34.2 Malignant neoplasm of middle lobe, bronchus or lung (principal); R91.1 Solitary pulmonary nodule; R91.8 Other nonspecific abnormal finding of lung field; Z88.6 Allergy status to analgesic agent; Z88.8 Allergy status to other drugs, medicaments and biological substances
CPT/HCPCS: 82565; 84520; 71260; Q9967

== ENCOUNTER 2019-05-20 08:16 | Emergency (ER) | payer MEDICARE ==
[~2019-05-20 08:16] MED LIST changes: -ALBUTEROL NEB (CONC) 2.5 MG/0.5 ML INHALATION ONE; -ATROPINE SULFATE 0.4 MG/ML 1 ML VIAL IM ONE; +EPINEPHrine 10 ML SYRINGE (0.1 MG/ML) ONE; -LACTATED RINGERS 1,000 ML IV SCH; -LIDOCAINE HCL/PF 20 MG/ML ML INHALATION ONE; -LIDOCAINE VISCOUS 2% 15 ML CUP MUCOUS MEM ONE; -MORPHINE SULFATE 2 MG/ML SYRINGE IV PRN; -SODIUM CHLORIDE 0.9% 1,000 ML IV SCH
[2019-05-20 09:01] VITALS: BP 121/101; PULSE 0; RESP 0
--- NOTE | 2019-05-20 09:45 | ED ---
CPR HPI - General Chief Complaint: Cardiac Arrest/CPR Stated Complaint: Cardiac arrest Time Seen by Provider: 05/20/19 08:16 Source: EMS Mode of arrival: EMS Limitations: altered mental status - History of Present Illness Initial Comments: The patient is a 64-year-old female past medical history of lung cancer presents to the emergency department in cardiac arrest. EMS provided the history. They state that the patient was last seen well at 10 PM last night. The patient's works nights and he left the house at 10 PM. He stated that his mindy ghter talked to the patient at 10:20 PM last night and she was doing fine. The patient arrived home this morning and stated that he knew that his was in the bathroom however he thought she was getting ready for the day. He was attempting to lay down to go to sleep. When he walked to the bathroom he noted that she was on the floor. She is cool to the touch and there is a significant amount of bleeding coming from the patient's nose and mouth. She has a history of active lung cancer and has had hemoptysis in the past. She was seen twice in our emergency department in January for this complaint. She was then referred to [facility] for further treatment however reports that they could not find the etiology of the patient's bleeding. She had been complaining of some weakness over the past several days however denied cough, hemoptysis, fevers or shortness of breath. called EMS. Daughter was at the house and started CPR. EMS placed a LMA the patient's airway and completed 30 minutes of CPR for which they gave 5 rounds of epinephrine. The patient was found in asystole and remained in asystole throughout the code. Patient arrived to be pulseless and apneic. Her pupils were fixed and dilated. There is a significant amount of bleeding coming from the patient's mouth and nose. There are no other alleviating, precipitating or modifying factors - Related Data Home Medications Medication Instructions Recorded Confirmed Nitroglycerin Sl Tabs [Nitrostat] 0.4 mg PO Q5M PRN 01/28/18 02/24/19 Pramipexole [Mirapex] 0.125 mg PO HS 01/28/18 02/24/19 Rosuvastatin [Crestor] 20 mg PO HS 01/28/18 02/24/19 Spironolactone [Aldactone] 25 mg PO DAILY 01/28/18 02/24/19 Aspirin [Adult Low Dose Aspirin EC] 81 mg PO HS 05/22/18 02/24/19 Pantoprazole Sodium [Protonix] 40 mg PO BID 07/10/18 02/24/19 Acetaminophen [Tylenol] 650 mg PO Q6H PRN 11/04/18 02/24/19 Albuterol Nebulized [Ventolin 2.5 mg INHALATION RT-BID 11/04/18 02/24/19 Nebulized] Gabapentin [Neurontin] 100 mg PO TID 11/04/18 02/24/19 oxyCODONE HCL [Roxicodone] 5 mg PO QID PRN 11/04/18 02/24/19 tiZANidine HCL [Zanaflex] 4 mg PO Q8HR PRN 11/04/18 02/24/19 Prochlorperazine [Compazine] 5 mg PO Q8HR PRN 12/10/18 02/24/19 Lidocaine Viscous 2% [Xylocaine 15 ml PO Q4H PRN 12/24/18 02/24/19 Viscous] Sucralfate [Carafate] 1 gm PO TID PRN 12/31/18 02/24/19 Escitalopram [Lexapro] 20 mg PO DAILY 01/16/19 02/24/19 Ondansetron HCl [Zofran] 4 - 8 mg PO Q4-6H PRN 01/29/19 02/24/19 Previous Rx's Medication Instructions Recorded Potassium Chloride ER [K-Dur 20] 20 meq PO BID #60 tab 01/30/19 Allergies Allergy/AdvReac Type Severity Reaction Status Date / Time ketorolac [From Toradol] Allergy Rash/Hives Verified 05/20/19 09:01 orphenadrine [From Norgesic] Allergy Rash/Hives Verified 05/20/19 09:01 tolmetin [From Tolectin] Allergy Rash/Hives Verified 05/20/19 09:01 Review of Systems ROS Statement: Those systems with pertinent positive or pertinent negative responses have been documented in the HPI. ROS Other: All systems not noted in ROS Statement are negative. Past Medical History Past Medical History: Atrial Fibrillation, Coronary Artery Disease (CAD), Cancer, Deep Vein Thrombosis (DVT), Hyperlipidemia, Hypertension, Myocardial Infarction ([place]), Osteoarthritis (OA), Pneumonia, Vascular Disorder Additional Past Medical History / Comment(s): R mid lung cancer with chemo that ended 12/31/18 and radiation that ended 01/03/19, DVTs bilateral lower legs, bronchitis, chronic lower back pain/herniated discs, arthritis in multiple joints, PVD, thoracotomy sep 2018 Jan 16 admission due to coughing up blood, was transferred to [facility]. Also treated for staph infection. Last Myocardial Infarction Date:: 1995 History of Any Multi-Drug Resistant Organisms: None Reported Past Surgical History: Back Surgery, Breast Surgery, Heart Catheterization, Hysterectomy, Orthopedic Surgery Additional Past Surgical History / Comment(s): Bronchoscopies/brushings and biopsy, R lung stent Jun, 2017 at [facility], thoracotomy September, at [facility], benign mass removed from L adrenal gland, L breast benign biopsy, R rotator cuff repair X2, thyoid surgery for goiter, R lower leg stents x2. Right lung stent Past Anesthesia/Blood Transfusion Reactions: No Reported Reaction Past Psychological History: Depression Smoking Status: Former smoker Past Alcohol Use History: None Reported Past Drug Use History: None Reported - Past Family History Mother Family Medical History: Cancer Additional Family Medical History / Comment(s): lung cancer. mesothelioma Father Family Medical History: Coronary Artery Disease (CAD) General Exam Limitations: altered mental status Course Vital Signs 05/20/19 08:16 Pulse Rate 0 L Respiratory 0 L Rate Blood Pressure 121/101 O2 Sat by Pulse 0 L Oximetry Medical Decision Making - Medical Decision Making Upon arrival the patient was promptly placed in a trauma bay 2. Personal protective equipment was worn as the circumstances surrounding the patient's code was unknown. The patient arrived with an LMA in place. I did remove this and the patient was intubated with a 7-1/2 ET tube, 23 cm at the lip. High- quality CPR was continued using the Noman device. Several pulse checks were performed and the patient remained in asystole. We did obtain additional peripheral access. Lung sounds were auscultated bilaterally. The patient did have pulse ox in the 90s with bagging. The patient's pupils were fixed and dilated. After maintaining in asystole after several pulse checks and a total of an hour of CPR, the patient was pronounced at 8:28 AM. I discussed the case with the patient's primary care physician at 8:40 AM. I also discussed the case with the front office medical assistant at 8:50 AM. The front office medical assistant stated the patient could be released to the home. The patient's family did arrive at 9:30 AM and I discussed the patient's care with them. They are allowed back to see the patient. They provide the history that the patient has been complaining of weakness and headaches over the past couple of days. She has not had a cough, fevers or shortness of breath. She has been battling lung cancer for the past several months. She was last seen at [facility] and they co uld not find the etiology of her bleeding. The patient will be released to the home Disposition Disposition: Referrals: Pk Castano, [Primary Care Provider] - 1-2 days
== END 2019-05-20 09:49 | disposition expired ==
LOC: EC 08:16
DX: I46.9 Cardiac arrest, cause unspecified (principal); C34.91 Malignant neoplasm of unspecified part of right bronchus or lung; I48.91 Unspecified atrial fibrillation; I25.10 Atherosclerotic heart disease of native coronary artery without angina pectoris; I10 Essential (primary) hypertension; E78.5 Hyperlipidemia, unspecified; I25.2 Old myocardial infarction; F32.9 Major depressive disorder, single episode, unspecified; Z79.82 Long term (current) use of aspirin; Z79.899 Other long term (current) drug therapy; Z88.5 Allergy status to narcotic agent; Z88.6 Allergy status to analgesic agent; Z88.8 Allergy status to other drugs, medicaments and biological substances; Z87.891 Personal history of nicotine dependence
CPT/HCPCS: 31500; 92950; 99285